=== PATIENT | female | born 1985 | race Caucasian/White ===

== ENCOUNTER 2018-03-13 12:24 | Emergency (ER) | payer SELFPAY ==
--- OUTSIDE RECORDS SUMMARY | 2018-03-13 12:26 | XMS REPORT ---
:1985 [facility] Address [address] [place] [address] Care Team Providers Name Role Phone CAYDEN HAYES Unavailable Unavailable ENDY TERRY Unavailable Unavailable Problems This patient has no known problems. Allergies, Adverse Reactions, Alerts This patient has no known allergies or adverse reactions. Medications This patient has no known medications. Results Test Description Test Time Test Comments Text Results Atomic Results Result Comments Comprehensive Metabolic Panel 2017-01-05 02:18:00 Test Item Value Reference Range Comments Sodium (test code=NA) 138 mmol/L 135-145 Potassium (test code=K) 3.0 mmol/L 3.5-5.1 Chloride (test code=CL) 95 mmol/L 98-105 Carbon Dioxide (test 32 mmol/L 22-29 code=CO2) Glucose (test code=GLU) 143 mg/dL 70-115 Blood Urea Nitrogen (test 19 mg/dL 6-20 code=BUN) Creatinine (test code=CREAT) 0.9 mg/dL 0.5-0.9 Calcium (test code=CA) 10.0 mg/dL 8.3-10.5 Prot Total (test code=TP) 7.3 g/dL 6.4-8.3 Albumin (test code=ALB) 4.6 g/dL 3.5-5.2 A/G Ratio (test 1.7 Ratio code=AGRATIO) Globulin (test code=GLOB) 2.7 2.9-3.1 Bili Total (test code=TBIL) 0.3 mg/dL 0.1-0.9 Alk Phos (test code=APHOS) 82 U/L 35-104 AST (test code=AST) 15 U/L 1-32 ALT (test code=ALT) 12 U/L 1-33 BUN/Creatinine Ratio (test 21.1 code=BCRATIO) Anion Gap (test code=AGAP) 11 mmol/L 7-16 Estimated GFR (test >60 mL/min/1.73m2 eGFR (estimated Glomerular code=GFR) Filtration Rate) is an estimated value,calculated from the patient's serum creatinine using the MDRD equation.It is NOT the patient's actual GFR. The eGFR provides a more clinicallyuseful measure of kidney disease than serum creatinine alone.This calculation takes sex and race into account, if the informationis provided. If the race is not provided, and the patient isAfrican-B[place]i, multiply by 1.212. If sex is not provided, and thepatient is female, multiply by 0.742. Results for patients <18 years ofage have not been validated by the MDRD study and should be interpretedwith caution.eGFR Result Interpretation:eGFR > or=60 is in the Normal RangeeGFR < 60 may mean kidney diseaseeGFR < 15 may mean kidney failureRanges recommended by the National Kidney Foundation,http://nkdep.nih.go v [id number] 00:39:00 Test Item Value Reference Range Comments Amphetamine (test code=AMPH) Negative Negative For diagnostic purposes only, positive results should always be assessedin conjunctionwith the patient's medical history,clinical examination and otherfindings.To fulfill legal requirements, a more specific alternate chemical methodmust be used inorder to obtain a Confirmed analytical result. GC/MS is the preferred confirmatory method. Barbiturates (test code=ROSAMARIA) POSITIVE Negative Benzodiazepine (test Negative Negative code=ANTONY) Cocaine (test code=COCA) Negative Negative Methadone (test code=MTHD) Negative Negative Opiates (test code=OPIA) Negative Negative PCP (test code=PCP) Negative Negative Propoxyphene (test Negative Negative code=PROPOX) THC (test code=THC) POSITIVE Negative Urinalysis [id number] 00:29:00 Test Item Value Reference Range Comments Color (test code=COLOR) Yellow Yellow,Straw,Pl yellow Clarity (test code=CLAR) Clear Clear Specific [place] (test code=SPGR) 1.026 1.001-1.035 pH (test code=PH) 9.0 5.0-9.0 Ketone (test code=KET) 5 mg/dL Negative Glucose (test code=GLUCUR) Negative mg/dL Negative Protein (test code=PROT) 75 mg/dL Negative Bilirubin (test code=BILI) Negative mg/dL Negative Occult Blood (test code=UDOB) Moderate Negative Urobilinogen (test code=UROB) 0.2 mg/dL 0.2-1.0 Nitrite (test code=NIT) Negative Negative Leuk Esterase (test code=LEUK) Negative Negative Micros Exam (test code=MEXAM) Indicated Epithelial Cells (test code=EPI) 20-29 /LPF 0-30 WBC, Urine (test code=UWBC) 0-1 /HPF 0-5 RBC, Urine (test code=URBC) None Seen /HPF 0-5 Bacteria (test code=BACT) Few /HPF CBC with [id number] 23:55:00 Test Item Value Reference Range Comments WBC (test code=WBC) 14.9 K/cumm 4.4-10.5 RBC (test code=RBC) 5.13 M/cumm 3.75-5.20 Hemoglobin (test code=HGB) 15.0 gm/dL 12.2-14.8 Hematocrit (test code=HCT) 45.5 % 36.5-44.4 MCV (test code=MCV) 88.8 fL 80-100 MCH (test code=MCH) 29.3 pg 27.0-32.5 MCHC (test code=MCHC) 33.0 g/dL 32.0-37.5 RDW (test code=RDW) 13.9 % 11.5-14.5 Platelet Count (test code=PLTCT) 304 K/cumm 140-440 MPV (test code=MPV) 9.0 fL Diff Method (test code=DIFFM) Auto Neutrophil (test code=NEUT) 83.6 % 36-70 Lymphocyte (test code=LYMPH) 10.5 % 12-44 Monocyte (test code=MONO) 5.3 % 0-11 Eosinophil (test code=EOS) 0.5 % 0-7 Basophil (test code=BASO) 0.1 % 0-2 Neutro Abs (test code=ANEUT) 12.5 K/cumm 1.6-7.4 Lymph Abs (test code=ALYMPH) 1.6 K/cumm 0.5-4.6 [place] Abs (test code=AMONO) 0.8 K/cumm 0.0-1.2 Eos Abs (test code=AEOS) 0.07 K/cumm 0.00-0.74 Baso Abs (test code=ABASO) 0.0 K/cumm 0.00-0.21 Comprehensive Metabolic [id number] 08:18:00 Test Item Value Reference Range Comments Sodium (test code=NA) 141 mmol/L 135-145 Potassium (test code=K) 3.7 mmol/L 3.5-5.1 Chloride (test code=CL) 99 mmol/L 98-105 Carbon Dioxide (test 29 mmol/L 22-29 code=CO2) Glucose (test code=GLU) 150 mg/dL 70-115 Blood Urea Nitrogen 18 mg/dL 6-20 (test code=BUN) Creatinine (test 0.9 mg/dL 0.5-0.9 code=CREAT) Calcium (test code=CA) 10.1 mg/dL 8.3-10.5 Prot Total (test 7.8 g/dL 6.4-8.3 code=TP) Albumin (test code=ALB) 4.7 g/dL 3.5-5.2 A/G Ratio (test 1.5 Ratio code=AGRATIO) Globulin (test 3.1 2.9-3.1 code=GLOB) Bili Total (test 0.2 mg/dL 0.1-0.9 code=TBIL) Alk Phos (test 89 U/L 35-104 code=APHOS) AST (test code=AST) 15 U/L 1-32 ALT (test code=ALT) 12 U/L 1-33 BUN/Creatinine Ratio 20.0 (test code=BCRATIO) Anion Gap (test 13 mmol/L 7-16 code=AGAP) Estimated GFR (test >60 mL/min/1.73m2 eGFR (estimated Glomerular code=GFR) Filtration Rate) is an estimated value,calculated from the patient's serum creatinine using the MDRD equation.It is NOT the patient's actual GFR. The eGFR provides a more clinicallyuseful measure of kidney disease than serum creatinine alone.This calculation takes sex and race into account, if the informationis provided. If the race is not provided, and the patient isAfrican-B[place], multiply by 1.212. If sex is not provided, and thepatient is female, multiply by 0.742. Results for patients <18 years ofage have not been validated by the MDRD study and should be interpretedwith caution.eGFR Result Interpretation:eGFR > or=60 is in the Normal RangeeGFR < 60 may mean kidney diseaseeGFR < 15 may mean kidney failureRanges recommended by the National Kidney Foundation,http://nkdep.nih .gov [id number] 08:18:00 Test Item Value Reference Range Comments Lipase (test code=LIP) 29 U/L 13-60 Urinalysis [id number] 07:51:00 Test Item Value Reference Range Comments Color (test code=COLOR) Yellow Yellow,Straw,Pl yellow Clarity (test code=CLAR) Clear Clear Specific [place] (test 1.024 1.001-1.035 code=SPGR) pH (test code=PH) 9.0 5.0-9.0 Ketone (test code=KET) Negative mg/dL Negative Glucose (test code=GLUCUR) Negative mg/dL Negative Protein (test code=PROT) 75 mg/dL Negative Bilirubin (test code=BILI) Negative mg/dL Negative Occult Blood (test code=UDOB) Moderate Negative Urobilinogen (test code=UROB) 0.2 mg/dL 0.2-1.0 Nitrite (test code=NIT) Negative Negative Leuk Esterase (test code=LEUK) Negative Negative Ictotest (test code=ICTOTEST) Confirmed Negative Negative,Confirmed Negative Micros Exam (test code=MEXAM) Indicated Epithelial Cells (test /LPF 0-30 code=EPI) WBC, Urine (test code=UWBC) 0-5 /HPF 0-5 RBC, Urine (test code=URBC) 0-3 /HPF 0-5 Bacteria (test code=BACT) Few /HPF BHCG, Serum, [id number] 07:20:00 Test Item Value Reference Range Comments Preg Qual [Se] (test code=BSHCG) Negative Negative CBC with [id number] 07:12:00 Test Item Value Reference Range Comments WBC (test code=WBC) 15.5 K/cumm 4.4-10.5 RBC (test code=RBC) 5.46 M/cumm 3.75-5.20 Hemoglobin (test code=HGB) 15.8 gm/dL 12.2-14.8 Hematocrit (test code=HCT) 49.9 % 36.5-44.4 MCV (test code=MCV) 91.4 fL 80-100 MCH (test code=MCH) 29.0 pg 27.0-32.5 MCHC (test code=MCHC) 31.7 g/dL 32.0-37.5 RDW (test code=RDW) 13.7 % 11.5-14.5 Platelet Count (test code=PLTCT) 317 K/cumm 140-440 MPV (test code=MPV) 8.9 fL Diff Method (test code=DIFFM) Auto Neutrophil (test code=NEUT) 86.1 % 36-70 Lymphocyte (test code=LYMPH) 10.0 % 12-44 Monocyte (test code=MONO) 3.2 % 0-11 Eosinophil (test code=EOS) 0.5 % 0-7 Basophil (test code=BASO) 0.1 % 0-2 Neutro Abs (test code=ANEUT) 13.4 K/cumm 1.6-7.4 Lymph Abs (test code=ALYMPH) 1.6 K/cumm 0.5-4.6 [place] Abs (test code=AMONO) 0.5 K/cumm 0.0-1.2 Eos Abs (test code=AEOS) 0.08 K/cumm 0.00-0.74 Baso Abs (test code=ABASO) 0.0 K/cumm 0.00-0.21
[2018-03-13] MEDS ORDERED: IBUPROFEN 400 MG TAB ONE (13:37)
--- NOTE | 2018-03-13 14:13 | RAD REPORT ---
EXAM DESCRIPTION: RAD - Wrist Right 3 View - 03/13/2018 1:41 pm CLINICAL HISTORY: Right wrist pain status post injury FINDINGS: No fracture or dislocation is seen. If the patient continues to have symptoms to suggest a n occult fracture then a followup plain film series in 7 days would be recommended.
--- NOTE | 2018-03-13 14:16 | ER ---
Nurse's Notes [facility] Name: Madison Moreland Age: 32 yrs Sex: Female : 1985 Arrival Date: 03/13/2018 Time: 12:26 Bed 25 Private MD: Diagnosis: Contusion of right wrist Presentation: 03/13 12:42 Presenting complaint: Patient states: Bumped her right wrist into microwave stand on aj Monday, reports pain and bruising since. Transition of care: patient was not received from another setting of care. Onset of symptoms was March 11, 2018. Risk Assessment: Do you want to hurt yourself or someone else? Patient reports no desire to harm self or others. Care prior to arrival: None. 12:42 Method Of Arrival: Ambulatory 12:42 Acuity: DULCE 4 aj 13:45 Initial Sepsis Screen: Does the patient meet any 2 criteria? No. Patient's initial aj1 sepsis screen is negative. Does the patient have a suspected source of infection? No. Patient's initial sepsis screen is negative. Triage Assessment: 12:44 General: Appears in no apparent distress. comfortable, Behavior is calm, cooperative, aj appropriate for age. Pain: Complains of pain in dorsal aspect of right forearm, right wrist and palmar aspect of right forearm. Neuro: Level of Consciousness is awake, alert, obeys commands, Oriented to person, place, time, situation, Appropriate for age. Respiratory: Airway is patent Respiratory effort is even, unlabored, Respiratory pattern is regular, symmetrical. Derm: Skin is intact, is healthy with good turgor, Skin is pink, warm \T\ dry. normal. Musculoskeletal: Circulation, motion, and sensation intact. Range of motion: intact in all extremities, Reports pain in dorsal aspect of right forearm, right wrist and palmar aspect of right forearm. Injury Description: Bruise sustained to palmar aspect of right forearm. 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 - Social history:: Smoking status: Patient/guardian denies using tobacco. - Ebola Screening: : Patient negative for fever greater than or equal to 101.5 degrees Fahrenheit, and additional compatible Ebola Virus Disease symptoms Patient denies exposure to infectious person Patient denies travel to an Ebola-affected area in the 21 days before illness onset No symptoms or risks identified at this time. Screenin:44 Abuse screen: Denies threats or abuse. Denies injuries from another. Nutritional aj1 screening: No deficits noted. Tuberculosis screening: No symptoms or risk factors identified. 15:04 Fall Risk None identified. aj1 Assessment: 13:43 General: Appears in no apparent distress. uncomfortable, Behavior is calm, cooperative, aj1 appropriate for age. Pain: Complains of pain in right arm and palmar aspect of right forearm and right wrist and dorsal aspect of right forearm Pain currently is 10 out of 10 on a pain scale. Neuro: Level of Consciousness is awake, alert, obeys commands, Oriented to person, place, time, situation, Speech is normal, Facial symmetry appears normal. Cardiovascular: Patient's skin is warm and dry. Respiratory: Airway is patent Respiratory effort is even, unlabored, Respiratory pattern is regular, symmetrical. GI: No signs and/or symptoms were reported involving the gastrointestinal system. : No signs and/or symptoms were reported regarding the genitourinary system. EENT: No signs and/or symptoms were reported regarding the EENT system. Derm: Skin is pink, warm \T\ dry. normal. Musculoskeletal: Capillary refill < 3 seconds, in right fingers. Range of motion: intact in all extremities. 14:45 Reassessment: Patient appears in no apparent distress at this time. No changes from aj1 previously documented assessment. Patient and/or family updated on plan of care and expected duration. Pain level reassessed. Patient is alert, oriented x 3, equal unlabored respirations, skin warm/dry/pink. Vital Signs: 12:44 BP 120 / 95; Pulse 96; Resp 16; Temp 98.6; Pulse Ox 98% on R/A; Weight 86.18 kg; Height aj 5 ft. 6 in. (167.64 cm); Pain 8/10; 13:43 BP 117 / 65; Pulse 64; Resp 18; Pulse Ox 97% ; aj1 12:44 Body Mass Index 30.67 (86.18 kg, 167.64 cm) aj ED Course: 12:26 Patient arrived in ED. aa5 12:44 Triage completed. aj 12:44 Arm band placed on left wrist. Patient placed in an exam room. aj 12:45 Lewis Flowers PA is PHCP. cp 12:45 Pavel Little MD is Attending Physician. cp 13:12 Yumiko Zhao, RN is Primary Nurse. aj1 13:41 XRAY Wrist RIGHT 3 view In Process Unspecified. EDMS 13:44 Patient has correct armband on for positive identification. Bed in low position. Call aj1 light in reach. Side rails up X 1. 13:44 No provider procedures requiring assistance completed. aj1 15:04 Patient did not have IV access during this emergency room visit. aj1 15:05 Velcro wrist splint applied to right wrist. aj1 Administered Medications: 13:39 Drug: Ibuprofen 800 mg Route: PO; aj1 Outcome: 14:16 Discharge ordered by MD. cp 15:04 Discharged to home ambulatory. aj1 15:04 Condition: good 15:04 Discharge instructions given to patient, Instructed on discharge instructions, follow up and referral plans. medication usage, Demonstrated understanding of instructions, follow-up care, medications. 15:06 Patient left the ED. aj1 Signatures: Dispatcher [employer] EDMT Yumiko Zhao, RN RN aj1 Puja Elias RN RN Mel Deng RN RN aa5 Lewis Flowers PA PA cp
--- NOTE | 2018-03-13 14:16 | EDPHYS ---
Physician Documentation [facility] Name: Madison Moreland Age: 32 yrs Sex: Female : 1985 Arrival Date: 03/13/2018 Time: 12:26 Bed 25 Private MD: ED Physician Pavel Little HPI: 03/13 13:00 This 32 yrs old Female presents to ER via Ambulatory with complaints of Wrist cp Injury. 13:00 The patient or guardian reports a contusion, pain, swelling, tenderness. The complaints cp affect the right wrist diffusely. Context: The problem was sustained at home, resulted from from accidently striking wrist against microwave 2 days ago. patient reports history of fracturing right wrist 4 years ago. 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 - Social history:: Smoking status: Patient/guardian denies using tobacco. - Ebola Screening: : Patient negative for fever greater than or equal to 101.5 degrees Fahrenheit, and additional compatible Ebola Virus Disease symptoms Patient denies exposure to infectious person Patient denies travel to an Ebola-affected area in the 21 days before illness onset No symptoms or risks identified at this time. ROS: 13:05 Constitutional: Negative for body aches, chills, fever, poor PO intake. cp 13:05 Eyes: Negative for injury, pain, redness, and discharge. cp 13:05 ENT: Negative for drainage from ear(s), ear pain, sore throat, difficulty swallowing, difficulty handling secretions. 13:05 Neck: Negative for pain with movement, pain at rest, stiffness. 13:05 Cardiovascular: Negative for chest pain, palpitations. 13:05 Respiratory: Negative for cough, shortness of breath, wheezing. 13:05 Abdomen/GI: Negative for abdominal pain, nausea, vomiting, and diarrhea. 13:05 MS/extremity: Positive for contusion, ecchymosis, pain, swelling, tenderness, of the right wrist, Negative for deformity, paresthesias. 13:05 Skin: Negative for cellulitis, rash. 13:05 All other systems are negative. Exam: 13:12 Head/Face: Normocephalic, atraumatic. cp 13:12 Constitutional: The patient appears in no acute distress, alert, awake, non-toxic, well developed, well nourished, uncomfortable. 13:12 Eyes: Periorbital structures: appear normal, Conjunctiva: normal, no exudate, no injection, Lids and lashes: appear normal, bilaterally. 13:12 ENT: External ear(s): are unremarkable, Nose: is normal, Mouth: is normal, Posterior pharynx: is normal, airway is patent. 13:12 Chest/axilla: Inspection: normal. 13:12 Cardiovascular: Rate: normal, Rhythm: regular, Pulses: Pulses are 2+ in right radial artery and left radial artery. 13:12 Respiratory: the patient does not display signs of respiratory distress, Respirations: normal, no use of accessory muscles, no retractions, no splinting, no tachypnea, labored breathing, is not present, Breath sounds: are clear throughout. 13:12 Abdomen/GI: Exam negative for discomfort, distension, guarding, Inspection: abdomen appears normal. 13:12 Musculoskeletal/extremity: Extremities: grossly normal except: noted in the right wrist: contusion, ecchymosis, swelling, tenderness, There is no evidence of deformity, Sensation intact. 13:12 Skin: cellulitis, is not appreciated, no rash present. Vital Signs: 12:44 BP 120 / 95; Pulse 96; Resp 16; Temp 98.6; Pulse Ox 98% on R/A; Weight 86.18 kg; Height aj 5 ft. 6 in. (167.64 cm); Pain 8/10; 13:43 BP 117 / 65; Pulse 64; Resp 18; Pulse Ox 97% ; aj1 12:44 Body Mass Index 30.67 (86.18 kg, 167.64 cm) Procedures: 14:15 Splinting: Splint applied to right wrist using wrist splint, applied by nurse. Examined cp by me, post splint application: neurovascular intact, Patient tolerated well. MDM: 12:45 Patient medically screened. cp 14:15 Data reviewed: vital signs, nurses notes, radiologic studies, plain films. Counseling: cp I had a detailed discussion with the patient and/or guardian regarding: the historical points, exam findings, and any diagnostic results supporting the discharge/admit diagnosis, radiology results, the need for outpatient follow up, a family practitioner, to return to the emergency department if symptoms worsen or persist or if there are any questions or concerns that arise at home. 03/13 13:00 Order name: XRAY Wrist RIGHT 3 view; Complete Time: 14:14 cp 03/13 14:14 Interpretation: Report reviewed. cp 03/13 13:50 Order name: Wrist Splint; Complete Time: 15:04 cp Administered Medications: 13:39 Drug: Ibuprofen 800 mg Route: PO; aj1 Disposition: 17:44 Co-signature as Attending Physician, Pavel Little MD. rn 03/14 07:18 Co-signature as Attending Physician, Pavel Little MD. rn Disposition: 03/13/18 14:16 Discharged to Home. Impression: Contusion of right wrist. - Condition is Stable. - Discharge Instructions: Contusion. - Prescriptions for Naprosyn 500 mg Oral Tablet - take 1 tablet by ORAL route 2 times per day take with food; 20 tablet. - Work release form, Medication Reconciliation Form, Thank You Letter, Antibiotic Education, Prescription Opioid Use form. - Follow up: Private Physician; When: 5 - 6 days; Reason: if pain continues. - Problem is new. - Symptoms have improved. Signatures: Dispatcher [employer] EDYumiko Mena RN RN aj1 Puja Elias RN RN aj Nieto, Roman, MD MD rn Page, Corey, PA PA cp Corrections: (The following items were deleted from the chart) 03/13 13:03 13:02 This 32 yrs old Female presents to ER via Ambulatory with complaints of cp Wrist Injury. cp 15:06 14:16 03/13/2018 14:16 Discharged to Home. Impression: Contusion of right wrist. aj1 Condition is Stable. Forms are Medication Reconciliation Form, Thank You Letter, Antibiotic Education, Prescription Opioid Use. Follow up: Private Physician; When: 5 - 6 days; Reason: if pain continues. Problem is new. Symptoms have improved. cp
== END 2018-03-13 15:06 | disposition home or self-care (01) ==
LOC: ER 12:24
DX: S60.211A Contusion of right wrist, initial encounter (principal); W22.8XXA Striking against or struck by other objects, initial encounter; Y93.89 Activity, other specified; Y92.009 Unspecified place in unspecified non-institutional (private) residence as the place of occurrence of the external cause
CPT/HCPCS: 99283

== ENCOUNTER 2018-05-18 21:42 | Emergency (ER) | payer SELFPAY ==
--- OUTSIDE RECORDS SUMMARY | 2018-05-18 21:45 | XMS REPORT ---
:1985 [facility] Address [address] [place] [address] Care Team Providers Name Role Phone CAYDEN HAYES Unavailable Unavailable ENDYTERRY Unavailable Unavailable Problems This patient has no [...] recommended by the National Kidney Foundation,http://nkdep.nih.go v [id number] 00:39:00 Test Item Value Reference Range Comments [...] code=PROPOX) THC (test code=THC) POSITIVE Negative Urinalysis [id number] 00:29:00 Test Item Value Reference Range Comments Color (test code=COLOR) Yellow Yellow,Straw,Pl yellow Clarity (test code=CLAR) Clear Clear Specific [place] (test code=SPGR) 1.026 1.001-1.035 pH (test code=PH) [...] Bacteria (test code=BACT) Few /HPF CBC with [id number] 23:55:00 Test Item Value Reference Range Comments [...] Lymph Abs (test code=ALYMPH) 1.6 K/cumm 0.5-4.6 [place] Abs (test code=AMONO) 0.8 K/cumm 0.0-1.2 Eos Abs (test code=AEOS) 0.07 K/cumm 0.00-0.74 Baso Abs (test code=ABASO) 0.0 K/cumm 0.00-0.21 Comprehensive Metabolic [id number] 08:18:00 Test Item Value Reference Range Comments [...] recommended by the National Kidney Foundation,http://nkdep.nih .gov [id number] 08:18:00 Test Item Value Reference Range Comments Lipase (test code=LIP) 29 U/L 13-60 Urinalysis [id number] 07:51:00 Test Item Value Reference Range Comments Color (test code=COLOR) Yellow Yellow,Straw,Pl yellow Clarity (test code=CLAR) Clear Clear Specific [place] (test 1.024 1.001-1.035 code=SPGR) pH (test code=PH) [...] Bacteria (test code=BACT) Few /HPF BHCG, Serum, [id number] 07:20:00 Test Item Value Reference Range Comments Preg Qual [Se] (test code=BSHCG) Negative Negative CBC with [id number] 07:12:00 Test Item Value Reference Range Comments [...] Lymph Abs (test code=ALYMPH) 1.6 K/cumm 0.5-4.6 [place] Abs (test code=AMONO) 0.5 K/cumm 0.0-1.2 Eos Abs (test code=AEOS) 0.08 K/cumm 0.00-0.74 Baso Abs (test code=ABASO) 0.0 K/cumm 0.00-0.21
[2018-05-18] MEDS ORDERED: ONDANSETRON 4 MG/2 ML VIAL ONE (22:34)
[2018-05-18] MEDS ORDERED: NA CHLORIDE 0.9% 1,000 ML ONE (22:34)
[2018-05-18] MEDS ORDERED: FAMOTIDINE 20 MG/2 ML VIAL IV ONE (22:34)
[2018-05-18 22:36] LABS: Absolute Lymphocytes (CBC) 2.7 K/uL (0.7-4.9); Absolute Monocytes 0.7 K/uL (0.1-1.3); Absolute Neutrophil 7.4 K/uL (1.8-8.0); Basophils % 0.3 % (0-1.3); Eosinophils % 0.4 % (0-4.4); Hematocrit 43.9 % (36.0-45.0); Lymphocytes % 24.7 % (15.3-44.8); MCH 30.5 pg (27.0-35.0); MCV 86.4 fL (80-100); MPV 9.8 fL (7.6-11.3); Monocytes % 6.6 % (3.3-12.3); RBC Red Blood Cell Count 5.08 M/uL (3.86-4.86)
[2018-05-18] MEDS ORDERED: DICYCLOMINE HCL 10 MG CAP ONE (22:51)
[2018-05-18 23:01] LABS: Albumin 4.1 g/dL (3.4-5.0); Bilirubin Direct 0.1 mg/dL (0-0.2); Bilirubin Total 0.5 mg/dL (0.2-1.0); Potassium 3.6 mmol/L (3.5-5.1)
[2018-05-18] MEDS ORDERED: LIDOCAINE VISCOUS 2% SOLN 15 ML UDC ONE (23:46)
[2018-05-18] MEDS ORDERED: MAGNE/ALUM HYDROXD 30 ML UCUP ONE (23:46)
[2018-05-18 23:48] LABS: Urine Blood NEGATIVE (NEG); Urine Glucose NEGATIVE (NEG); Urine Protein NEGATIVE (NEG); Urine Specific Gravity 1.015 (1.005-1.030); Urine pH 5.5 (5.0-7.0)
[2018-05-19 00:16] LABS: Urine Bacteria <20 /HPF (<20); Urine Culture Reflex Order NOT NEEDED; Urine RBC <5 /HPF (NONE SEEN)
--- NOTE | 2018-05-19 00:57 | EDPHYS ---
Physician Documentation [facility] Name: Madison Moreland Age: 32 yrs Sex: Female : 1985 Arrival Date: 05/18/2018 Time: 21:46 Bed 8 Private MD: ED Physician Pedro Schwarz HPI: 05/18 22:23 This 32 yrs old Female presents to ER via Ambulatory with complaints of cp Abdominal Pain. 22:23 The patient presents with abdominal pain in the upper abdomen. Onset: The cp symptoms/episode began/occurred 1 month(s) ago. The symptoms do not radiate. Associated signs and symptoms: Pertinent positives: anorexia, nausea, Pertinent negatives: blood in stools, constipation, diarrhea, fever, vomiting. Modifying factors: the symptoms are aggravated by food, pressure. 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 - Social history:: Smoking status: Patient uses tobacco products, smokes one pack cigarettes per day. - Ebola Screening: : Patient negative for fever greater than or equal to 101.5 degrees Fahrenheit, and additional compatible Ebola Virus Disease symptoms Patient denies exposure to infectious person Patient denies travel to an Ebola-affected area in the 21 days before illness onset No symptoms or risks identified at this time. ROS: 22:26 Eyes: Negative for injury, pain, redness, and discharge. cp 22:26 Constitutional: Positive for poor PO intake, Negative for body aches, chills, fever. 22:26 ENT: Negative for drainage from ear(s), ear pain, sore throat, difficulty swallowing, difficulty handling secretions. 22:26 Cardiovascular: Negative for chest pain, edema, palpitations. 22:26 Respiratory: Negative for cough, shortness of breath, wheezing. 22:26 Abdomen/GI: Positive for abdominal pain, nausea, anorexia, Negative for vomiting, diarrhea, constipation, black/tarry stool, rectal bleeding. 22:26 Back: Negative for pain at rest, pain with movement, radiated pain. 22:26 Skin: Negative for cellulitis, rash. 22:26 Neuro: Negative for altered mental status, headache, weakness. 22:26 All other systems are negative. Exam: 22:27 Head/Face: Normocephalic, atraumatic. cp 22:27 Constitutional: The patient appears in no acute distress, alert, awake, non-toxic, well developed, well nourished, uncomfortable. 22:27 Eyes: Periorbital structures: appear normal, Conjunctiva: normal, no exudate, no injection, Sclera: no appreciated abnormality, Lids and lashes: appear normal, bilaterally. 22:27 ENT: External ear(s): are unremarkable, Nose: is normal, Mouth: Lips: moist, Oral mucosa: moist, Posterior pharynx: is normal, airway is patent, no erythema, no exudate. 22:27 Chest/axilla: Inspection: normal, Palpation: is normal, no crepitus, no tenderness. 22:27 Cardiovascular: Rate: normal, Rhythm: regular. 22:27 Respiratory: the patient does not display signs of respiratory distress, Respirations: normal, no use of accessory muscles, no retractions, no splinting, no tachypnea, labored breathing, is not present, Breath sounds: are clear throughout, no decreased breath sounds, no stridor, no wheezing. 22:27 Abdomen/GI: Inspection: abdomen appears normal, Bowel sounds: active, all quadrants, Palpation: soft, in all quadrants, moderate abdominal tenderness, in the epigastric area, right upper quadrant and left upper quadrant, rebound tenderness, is not appreciated, voluntary guarding, is elicited in the epigastric area, right upper quadrant and left upper quadrant. 22:27 Skin: cellulitis, is not appreciated, no rash present. Vital Signs: 22:04 BP 138 / 100; Pulse 84; Resp 20; Temp 98.8; Pulse Ox 97% ; Weight 83.91 kg; Height 5 bp ft. 6 in. (167.64 cm); 22:30 BP 127 / 94; Pulse 67; Resp 16; Pulse Ox 100% ; bp 23:47 BP 126 / 84; Pulse 74; Resp 16; Pulse Ox 97% ; bp 08 01:00 BP 106 / 64; Pulse 68; Resp 16; Pulse Ox 98% ; bp 08 22:04 Body Mass Index 29.86 (83.91 kg, 167.64 cm) bp MDM: 05/18 22:00 Patient medically screened. cp 23:00 Differential diagnosis: appendicitis, cholecystitis, Cholelithiasis, diverticulitis, cp gastritis, pancreatitis, Pelvic Inflammatory Disease, Pyelonephritis, Ureterolithiasis, urinary tract infection. 05/19 00:55 Data reviewed: vital signs, nurses notes, lab test result(s), radiologic studies, CT cp scan. 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 Special discussion: Based on the patient's Hx, exam, and Dx evaluation, there is no indication for emergent surgery or inpatient Tx. It is understood by the patient/guardian that if the Sx's persist or worsen they need to return immediately for re-evaluation. 05/18 22:23 Order name: Amylase, Serum; Complete Time: 23:37 cp 05/18 22:23 Order name: Basic Metabolic Panel; Complete Time: 23:37 cp 05/19 00:03 Interpretation: Normal except: CL 108; GFR 83. cp 05/18 22:23 Order name: CBC with Diff; Complete Time: 23:37 cp 05/19 00:03 Interpretation: Normal except: RBC 5.08; HGB 15.5. cp 05/18 22:23 Order name: Creatinine for Radiology; Complete Time: 23:37 cp 05/18 22:23 Order name: Hepatic Function; Complete Time: 23:37 cp 05/18 22:23 Order name: Lipase; Complete Time: 23:37 cp 05/19 00:03 Interpretation: Within normal limits: LIP 158. cp 05/18 22:23 Order name: Urine Microscopic Only; Complete Time: 01:24 cp 05/18 22:23 Order name: CT Abd/Pelvis - W/Contrast: no oral contrast cp 05/18 23:05 Order name: Urine Dipstick--Ancillary (enter results) ms 05/18 23:05 Order name: Urine --Ancillary (enter results) ms 05/18 22:23 Order name: Urine Test (obtain specimen); Complete Time: 22:59 cp 05/18 22:23 Order name: IV Saline Lock; Complete Time: 22:25 cp 05/18 22:23 Order name: Labs collected and sent; Complete Time: 22:25 cp 05/18 22:23 Order name: Urine Dipstick-Ancillary (obtain specimen); Complete Time: 22:59 cp Administered Medications: 05/18 22:30 Drug: NS 0.9% 1000 ml Route: IV; Rate: 1 bolus; Site: right forearm; bp 22:30 Drug: Zofran 4 mg Route: IVP; Site: right forearm; bp 22:58 Follow up: Response: Nausea is decreased bp 22:30 Drug: Pepcid 20 mg Route: IVP; Site: right forearm; bp 22:59 Follow up: Response: No adverse reaction bp 22:45 Drug: Bentyl 20 mg Route: PO; bp 23:39 Follow up: Response: Pain is decreased bp 23:45 Drug: GI Cocktail without - (Maalox Suspension 30 ml, Lidocaine Liquid 2 % 15 bp ml) Route: PO; 23:46 Follow up: Response: Pain is decreased bp Disposition: 05/19 01:23 Co-signature as Attending Physician, Pedro Schwarz MD. pkl Disposition: 05/19/18 00:57 Discharged to Home. Impression: Upper abdominal pain, unspecified. - Condition is Stable. - Discharge Instructions: Abdominal Pain, Adult, Gastritis, Adult. - Prescriptions for Protonix 40 mg Oral Tablet - take 1 tablet by ORAL route once daily; 30 tablet. Zofran 4 mg Oral Tablet - take 1 tablet by ORAL route every 12 hours As needed; 20 tablet. Carafate 1 gram Oral Tablet - take 1 tablet by ORAL route 4 times per day take on an empty stomach, beginning on waking and last dose at bedtime. dissolve in small amount of warm water prior to ingestion; 100 tablet. - Medication Reconciliation Form, Thank You Letter, Antibiotic Education, Prescription Opioid Use, Work release form form. - Follow up: Lala Downs MD; When: 2 - 3 days; Reason: Recheck today's complaints. - Problem is new. - Symptoms have improved. Signatures: Dispatcher [employer] EDPedro Atwood MD MD pkl Lewis Flowers PA PA Stewart Hudson, RN RN bp Corrections: (The following items were deleted from the chart) 01:12 00:57 05/19/2018 00:57 Discharged to Home. Impression: Upper abdominal pain, bp unspecified. Condition is Stable. Forms are Medication Reconciliation Form, Thank You Letter, Antibiotic Education, Prescription Opioid Use. Follow up: Lala Downs; When: 2 - 3 days; Reason: Recheck today's complaints. Problem is new. Symptoms have improved. cp
--- NOTE | 2018-05-19 00:57 | ER ---
Nurse's Notes [facility] Name: Madison Moreland Age: 32 yrs Sex: Female : 1985 Arrival Date: 05/18/2018 Time: 21:46 Bed 8 Private MD: Diagnosis: Upper abdominal pain, unspecified Presentation: 05/18 22:03 Presenting complaint: Patient states: I'VE HAD THESE STOMACH CRAMPS FOR A MONTH. bp Transition of care: patient was not received from another setting of care. Onset of symptoms is unknown. Risk Assessment: Do you want to hurt yourself or someone else? Patient reports no desire to harm self or others. Initial Sepsis Screen: Does the patient meet any 2 criteria? No. Patient's initial sepsis screen is negative. Does the patient have a suspected source of infection? No. Patient's initial sepsis screen is negative. Care prior to arrival: None. 22:03 Method Of Arrival: Ambulatory bp 22:03 Acuity: DULCE 3 bp Triage Assessment: 22:04 General: Appears distressed, uncomfortable, Behavior is cooperative, appropriate for bp age, anxious. Pain: Complains of pain in abdomen. EENT: No deficits noted. Neuro: Level of Consciousness is awake, alert, obeys commands, Oriented to person, place, time, situation, Appropriate for age. Cardiovascular: No deficits noted. Respiratory: Airway is patent Respiratory effort is even, unlabored, Respiratory pattern is regular, symmetrical. GI: Abdomen is non-distended. : No deficits noted. Derm: No deficits noted. Musculoskeletal: Circulation, motion, and sensation intact. Range of motion: intact in all extremities. 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 - Social history:: Smoking status: Patient uses tobacco products, smokes one pack cigarettes per day. - Ebola Screening: : Patient negative for fever greater than or equal to 101.5 degrees Fahrenheit, and additional compatible Ebola Virus Disease symptoms Patient denies exposure to infectious person Patient denies travel to an Ebola-affected area in the 21 days before illness onset No symptoms or risks identified at this time. Screenin:16 Abuse screen: Denies threats or abuse. Denies injuries from another. Nutritional bp screening: No deficits noted. Tuberculosis screening: No symptoms or risk factors identified. Fall Risk None identified. Assessment: 22:15 Reassessment: SEE TRIAGE NOTE. bp 23:00 GI: Bowel sounds present X 4 quads. Abd is soft X 4 quads. bp 23:45 Reassessment: PT RETURNED FROM CT. ALL CURRENT STUDIES COMPLETED. LAB/RAD RESULTS bp PENDING. VS AND CURRENT RESULTS UNREMARKABLE. 05/19 01:10 Reassessment: PT D/C HOME AMBULATORY WITH FAMILY, DX WITH ABDOMINAL PAIN. bp Vital Signs: 05/18 22:04 BP 138 / 100; Pulse 84; Resp 20; Temp 98.8; Pulse Ox 97% ; Weight 83.91 kg; Height 5 bp ft. 6 in. (167.64 cm); 22:30 BP 127 / 94; Pulse 67; Resp 16; Pulse Ox 100% ; bp 23:47 BP 126 / 84; Pulse 74; Resp 16; Pulse Ox 97% ; bp 05/19 01:00 BP 106 / 64; Pulse 68; Resp 16; Pulse Ox 98% ; bp 05/18 22:04 Body Mass Index 29.86 (83.91 kg, 167.64 cm) bp ED Course: 05/18 21:46 Patient arrived in ED. al2 21:57 Stewart Russo, KINGS is Primary Nurse. bp 21:59 Lewis Flowers PA is PHCP. cp 21:59 Pedro Schwarz MD is Attending Physician. cp 22:04 Triage completed. bp 22:15 Arm band placed on. bp 22:16 Patient has correct armband on for positive identification. Bed in low position. Call bp light in reach. Side rails up X2. 22:16 Inserted saline lock: 20 gauge in right forearm, using aseptic technique. Blood bp collected. 22:26 Radiology exam delayed due to lab results not completed at this time. (BUN/Creatinine) kw1 test not completed at this time. 22:51 Radiology exam delayed due to lab results not completed at this time. (BUN/Creatinine). kw1 23:[address] via wheelchair. kw1 23:33 CT Abd/Pelvis - W/Contrast: no oral contrast In Process Unspecified. EDMS 23:35 CT completed. Patient tolerated procedure well. Patient moved back from CT. kw1 05/19 00:56 Lala Downs MD is Referral Physician. cp 01:10 No provider procedures requiring assistance completed. IV discontinued, intact, bp bleeding controlled, No redness/swelling at site. Pressure dressing applied. Administered Medications: 05/18 22:30 Drug: NS 0.9% 1000 ml Route: IV; Rate: 1 bolus; Site: right forearm; bp 22:30 Drug: Zofran 4 mg Route: IVP; Site: right forearm; bp 22:58 Follow up: Response: Nausea is decreased bp 22:30 Drug: Pepcid 20 mg Route: IVP; Site: right forearm; bp 22:59 Follow up: Response: No adverse reaction bp 22:45 Drug: Bentyl 20 mg Route: PO; bp 23:39 Follow up: Response: Pain is decreased bp 23:45 Drug: GI Cocktail without - (Maalox Suspension 30 ml, Lidocaine Liquid 2 % 15 bp ml) Route: PO; 23:46 Follow up: Response: Pain is decreased bp Outcome: 05/19 00:57 Discharge ordered by MD. cp 01:11 Discharged to home ambulatory, with family. bp 01:11 Condition: stable 01:11 Discharge instructions given to patient, Instructed on discharge instructions, follow up and referral plans. medication usage, Demonstrated understanding of instructions, follow-up care, medications, Prescriptions given X 3. 01:12 Patient left the ED. bp Signatures: Dispatcher [employer] EDMS Lewis Flowers PA PA cp Peltier, Brian, RN RN bp Shena Jules kw1 Nelida Rhodes2
--- NOTE | 2018-05-19 12:23 | RAD REPORT ---
EXAM DESCRIPTION: CTAbdomen Pelvis W Contrast - 05/19/2018 3:40 am CLINICAL HISTORY: Abdominal pain. upper abdominal pain COMPARISON: No comparisons TECHNIQUE: Biphasic CT imaging of the abdomen and pelvis was performed with 100 ml non-ionic IV cont rast. All CT scans are performed using dose optimization technique as appropriate and may include automated exposure control or mA/KV adjustment according to patient size. FINDINGS: The lung bases are clear. The liver, spleen, pancreas, adrenal glands and kidneys are within normal limits. No bowel obstruction, free air, free fluid or abscess. The appendix is normal. No evidence of signi ficant lymphadenopathy. No suspicious bony findings. Evidence of recent right ovarian cyst rupture or ovulation with trace pe lvic free fluid. IMPRESSION: No acute intra-abdominal or pelvic finding.
== END 2018-05-19 01:12 | disposition home or self-care (01) ==
LOC: ER 21:42
DX: R10.10 Upper abdominal pain, unspecified (principal); G40.909 Epilepsy, unspecified, not intractable, without status epilepticus; F17.210 Nicotine dependence, cigarettes, uncomplicated
CPT/HCPCS: 36415; 74177; 80048; 80076; 81003; 81015; 81025; 82150; 83690; 85025; 96374; 96375; 99284; J2405; J7030; Q9967

== ENCOUNTER 2018-05-20 17:40 | Emergency (ER) | payer SELFPAY ==
--- OUTSIDE RECORDS SUMMARY | 2018-05-20 17:42 | XMS REPORT ---
:1985 [facility] [address] [place] [address] Care Team Providers Name Role Phone CAYDEN [...] race is not provided, and the patient isAfrican-[place]i, multiply by 1.212. If sex is not provided, and thepatient is female, multiply by 0.742. Results for patients <18 years ofage have not been validated by the MDRD study and should be interpretedwith caution.eGFR Result Interpretation:eGFR > or=60 is in the Normal RangeeGFR < 60 may mean kidney diseaseeGFR < 15 may mean kidney failureRanges recommended by the National Kidney Foundation,http://nkdep.nih.go v [id number] 00:39:00 Test Item Value Reference Range Comments [...] code=PROPOX) THC (test code=THC) POSITIVE Negative Urinalysis [id number] 00:29:00 Test Item Value Reference Range Comments Color (test code=COLOR) Yellow Yellow,Straw,Pl yellow Clarity (test code=CLAR) Clear Clear Specific [place] (test code=SPGR) 1.026 1.001-1.035 pH (test code=PH) [...] Bacteria (test code=BACT) Few /HPF CBC with [id number] 23:55:00 Test Item Value Reference Range Comments [...] Lymph Abs (test code=ALYMPH) 1.6 K/cumm 0.5-4.6 [place]henry Abs (test code=AMONO) 0.8 K/cumm 0.0-1.2 Eos Abs (test code=AEOS) 0.07 K/cumm 0.00-0.74 Baso Abs (test code=ABASO) 0.0 K/cumm 0.00-0.21 Comprehensive Metabolic [id number] 08:18:00 Test Item Value Reference Range Comments [...] race is not provided, and the patient isAfrican-Ku[place]i, multiply by 1.212. If sex is not provided, and thepatient is female, multiply by 0.742. Results for patients <18 years ofage have not been validated by the MDRD study and should be interpretedwith caution.eGFR Result Interpretation:eGFR > or=60 is in the Normal RangeeGFR < 60 may mean kidney diseaseeGFR < 15 may mean kidney failureRanges recommended by the National Kidney Foundation,http://nkdep.nih .gov [id number] 08:18:00 Test Item Value Reference Range Comments Lipase (test code=LIP) 29 U/L 13-60 Urinalysis [id number] 07:51:00 Test Item Value Reference Range Comments Color (test code=COLOR) Yellow Yellow,Straw,Pl yellow Clarity (test code=CLAR) Clear Clear Specific [place] (test 1.024 1.001-1.035 code=SPGR) pH (test code=PH) [...] Bacteria (test code=BACT) Few /HPF BHCG, Serum, [id number] 07:20:00 Test Item Value Reference Range Comments Preg Qual [Se] (test code=BSHCG) Negative Negative CBC with [id number] 07:12:00 Test Item Value Reference Range Comments [...] Lymph Abs (test code=ALYMPH) 1.6 K/cumm 0.5-4.6 [place] Abs (test code=AMONO) 0.5 K/cumm 0.0-1.2 Eos Abs (test code=AEOS) 0.08 K/cumm 0.00-0.74 Baso Abs (test code=ABASO) 0.0 K/cumm 0.00-0.21
[2018-05-20] MEDS ORDERED: MAGNE/ALUM HYDROXD 30 ML UCUP ONE (18:10)
[2018-05-20] MEDS ORDERED: LIDOCAINE VISCOUS 2% SOLN 15 ML UDC ONE (18:11)
[2018-05-20] MEDS ORDERED: ONDANSETRON 4 MG/2 ML VIAL ONE (18:11)
[2018-05-20] MEDS ORDERED: MORPHINE 4 MG/ML SYR ONE (18:11)
[2018-05-20] MEDS ORDERED: NA CHLORIDE 0.9% 1,000 ML ONE (18:11)
[2018-05-20 18:23] LABS: Absolute Lymphocytes (CBC) 2.3 K/uL (0.7-4.9); Absolute Monocytes 0.7 K/uL (0.1-1.3); Absolute Neutrophil 7.8 K/uL (1.8-8.0); Basophils % 0.6 % (0-1.3); Eosinophils % 0.4 % (0-4.4); Hematocrit 45.1 % (36.0-45.0); MCH 29.8 pg (27.0-35.0); MPV 9.4 fL (7.6-11.3); Monocytes % 6.8 % (3.3-12.3); RBC Red Blood Cell Count 5.19 M/uL (3.86-4.86)
[2018-05-20 18:44] LABS: Albumin 4.3 g/dL (3.4-5.0); Bilirubin Direct 0.1 mg/dL (0-0.2); Bilirubin Total 0.5 mg/dL (0.2-1.0); Potassium 3.8 mmol/L (3.5-5.1); Protein, Total 8.3 g/dL (6.4-8.2)
--- NOTE | 2018-05-20 19:11 | RAD REPORT ---
EXAM DESCRIPTION: US - Abdomen Exam Limited - 05/20/2018 6:58 pm CLINICAL HISTORY: Abdominal pain COMPARISON: CT study May 18 FINDINGS: A single mobile 9 millimeter gallstone is identified. There is no wall thickening or peric holecystic fluid. No common duct stone or biliary tree dilatation identified. Common bile duct is 6 mm. IMPRESSION: Single mobile gallstone. No other gallbladder or biliary tree finding.
[2018-05-20] MEDS ORDERED: HALOPERIDOL LACT 5 MG/ML INJ ONE (20:04)
[2018-05-20] MEDS ORDERED: DIPHENHYDRAMINE 50 MG/ML VIAL ONE (20:04)
--- NOTE | 2018-05-20 20:46 | EDPHYS ---
Physician Documentation [facility] Name: Madison Moreland Age: 32 yrs Sex: Female : 1985 Arrival Date: 05/20/2018 Time: 17:42 Bed 14 Private MD: None, None ED Physician Kyle Albarran HPI: 05/20 18:17 This 32 yrs old Female presents to ER via Wheelchair with complaints of rn Abdominal Pain. 18:17 The patient presents with abdominal pain in the epigastric area, in the right upper rn quadrant. Onset: The symptoms/episode began/occurred. 18:19 Onset: The symptoms/episode began/occurred 3 day(s) ago. The symptoms radiate to The rn symptoms are described as sharp. Modifying factors: The symptoms are alleviated by nothing, the symptoms are aggravated by nothing. Severity of pain: At its worst the pain was moderate in the emergency department the pain is unchanged. The patient has experienced similar episodes in the past. Reports upper abd pain, radiates to back, + nausea and vomiting, seen recently and told normal ct abdomen, not taking antacid medication, no fever, can't tolerate PO, pain approx 30 min after eating.. 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 - Social history:: Smoking status: Patient uses tobacco products, smokes one pack cigarettes per day. - Ebola Screening: : Patient denies travel to an Ebola-affected area in the 21 days before illness onset. - Family history:: not pertinent. - Hospitalizations: : No recent hospitalization is reported. ROS: 18:19 Constitutional: Negative for fever, chills, and weight loss, Eyes: Negative for injury, rn pain, redness, and discharge, Neck: Negative for injury, pain, and swelling, Cardiovascular: Negative for chest pain, palpitations, and edema, Respiratory: Negative for shortness of breath, cough, wheezing, and pleuritic chest pain, Abdomen/GI: Negative for diarrhea, and constipation, MS/Extremity: Negative for injury and deformity, Skin: Negative for injury, rash, and discoloration, Neuro: Negative for headache, weakness, numbness, tingling, and seizure. Exam: 18:19 Constitutional: This is a well developed, well nourished patient who is awake, alert, rn uncomfortable, crying Head/Face: Normocephalic, atraumatic. Eyes: Pupils equal round and reactive to light, extra-ocular motions intact. Lids and lashes normal. Conjunctiva and sclera are non-icteric and not injected. Cornea within normal limits. Periorbital areas with no swelling, redness, or edema. Cardiovascular: tachycardic, regular, no murmur Respiratory: + hyperventilating and crying, clear bilateral breath sounds Abdomen/GI: soft, + epigastric and RUQ tenderness, no rebound, + upper abd guarding MS/ Extremity: Pulses equal, no cyanosis. Neurovascular intact. Full, normal range of motion. Equal circumference. Neuro: Awake and alert, GCS 15, oriented to person, place, time, and situation. Cranial nerves II-XII grossly intact. Motor strength 5/5 in all extremities. Sensory grossly intact. Vital Signs: 18:02 BP 158 / 101; Pulse 110; Resp 24; Pulse Ox 98% on R/A; Pain 10/10; aj1 18:27 BP 135 / 98; Pulse 93; Resp 20; Pulse Ox 95% on R/A; rb1 19:15 BP 112 / 60; Pulse 67; Resp 18; Pulse Ox 100% on R/A; Pain 8/10; lp1 20:00 BP 108 / 94; Pulse 53; Resp 16; Pulse Ox 98% on R/A; lp1 20:58 BP 112 / 55; Pulse 58; Resp 16; Temp 98.2; Pulse Ox 99% on R/A; Pain 1/10; lp1 MDM: 17:56 Patient medically screened. rn 20:42 Differential diagnosis: cholecystitis, Cholelithiasis, non-specific abd pain, chronic gs abdominal pain. Data reviewed: vital signs, nurses notes. Response to treatment: the patient's symptoms have resolved after treatment, and as a result, I will discharge patient. ED course: pt seen and examined mild diffuse ab tenderness no rebound, chroniuc ab pain for over one month ct labs on previous visit, us today, pain resolved with haldol. 20:42 Response to treatment: no emesis . 05/20 18:02 Order name: Basic Metabolic Panel; Complete Time: 18:48 rn 08 18:02 Order name: CBC with Diff; Complete Time: 18:48 rn 05/20 18:02 Order name: Creatinine for Radiology; Complete Time: 18:48 rn 05/20 18:02 Order name: Hepatic Function; Complete Time: 18:48 rn 08 18:02 Order name: Lipase; Complete Time: 18:48 rn 05/20 18:02 Order name: US Abdomen Limited; Complete Time: 19:12 rn 08 18:02 Order name: IV Saline Lock; Complete Time: 18:21 rn 08 18:02 Order name: Labs collected and sent; Complete Time: 18:21 rn Administered Medications: 18:05 Drug: morphine 4 mg Route: IVP; Site: left antecubital; rb1 18:22 Follow up: Response: No adverse reaction; Pain is decreased rb1 18:05 Drug: Zofran 4 mg Route: IVP; Site: left antecubital; rb1 18:22 Follow up: Response: No adverse reaction; Nausea is decreased rb1 18:05 Drug: GI Cocktail without - (Maalox Suspension 30 ml, Lidocaine Liquid 2 % 15 rb1 ml) Route: PO; 18:30 Follow up: Response: No adverse reaction; Pain is decreased rb1 18:05 Drug: NS 0.9% 1000 ml Route: IV; Rate: 1000 ml; Site: left antecubital; rb1 20:13 Follow up: IV Status: Completed infusion; IV Intake: 1000ml lp1 19:34 CANCELLED (Patient Eloped): fentaNYL (PF) 50 mcg IVP once gs 20:10 Drug: HALdol 2.5 mg Route: IVP; Site: left antecubital; lp1 20:58 Follow up: Response: Marked relief of symptoms lp1 20:10 Drug: Benadryl 25 mg Route: IVP; Site: left antecubital; lp1 20:58 Follow up: Response: Marked relief of symptoms lp1 Disposition: 05/20/18 20:46 Discharged to Home. Impression: Generalized abdominal pain, Chronic pain syndrome. - Condition is Stable. - Discharge Instructions: Abdominal Pain, Adult, Chronic Pain. - Prescriptions for Reglan 5 mg Oral tablet - take 1 tablet by ORAL route 4 times per day As needed; 20 tablet. Pepcid 20 mg Oral Tablet - take 1 tablet by ORAL route every 12 hours for 10 days; 20 tablet. - Work release form, Family Work Release, Medication Reconciliation Form, Thank You Letter, Antibiotic Education, Prescription Opioid Use form. - Follow up: Lala Downs MD; When: 2 - 3 days; Reason: Re-evaluation by your physician. Signatures: Dispatcher [employer] EDHI Yumiko Zhao RN RN aj1 Pavel Little MD MD rn Malathi Hong RN RN lp1 Carina Dowell RN RN rb1 Kyle Albarran MD MD Corrections: (The following items were deleted from the chart) 19:05 18:18 Abdomen Pelvis W Con+CT.RAD.BRZ ordered. [facility] 19:34 19:34 fentaNYL (PF) 50 mcg IVP once ordered. [facility] 21:00 20:46 05/20/2018 20:46 Discharged to Home. Impression: Generalized abdominal pain; lp1 Chronic pain syndrome. Condition is Stable. Forms are Medication Reconciliation Form, Thank You Letter, Antibiotic Education, Prescription Opioid Use. Follow up: Lala Downs; When: 2 - 3 days; Reason: Re-evaluation by your physician.
--- NOTE | 2018-05-20 20:46 | ER ---
Nurse's Notes [facility] Name: Madison Moreland Age: 32 yrs Sex: Female : 1985 Arrival Date: 05/20/2018 Time: 17:42 Bed 14 Private MD: None, None Diagnosis: Generalized abdominal pain;Chronic pain syndrome Presentation: 05/20 17:58 Presenting complaint: Patient states: She has been having abdominal pain for the past aj1 month, but it has gotten much worse over the past few days. Patient is diaphoretic, restless, crying. Reports pain to the epigastric area and LUQ, nausea, and vomiting. Denies diarrhea, denies fever. Reports pain is exacerbated by eating. Reports that she was seen here in this emergency room recently and was told that she might have a stomach ulcer. She was unable to follow up with a physician. Transition of care: patient was not received from another setting of care. Onset of symptoms was April 2018. Risk Assessment: Do you want to hurt yourself or someone else? Patient reports no desire to harm self or others. Initial Sepsis Screen: Does the patient meet any 2 criteria? HR > 90 bpm. Does the patient have a suspected source of infection? Yes: Acute abdominal pain. Care prior to arrival: None. 17:58 Method Of Arrival: Wheelchair aj1 17:58 Acuity: DULCE 3 aj1 Triage Assessment: 18:02 General: Appears distressed, uncomfortable, Behavior is cooperative, anxious, crying, aj1 restless. Pain: Complains of pain in epigastric area and left upper quadrant Pain does not radiate. Pain currently is 10 out of 10 on a pain scale. Quality of pain is described as sharp, Pain began one month ago Is intermittent, Alleviated by nothing. Aggravated by eating, drinking. Neuro: Level of Consciousness is awake, alert, obeys commands. Cardiovascular:. Respiratory: Airway is patent Respiratory effort is even, unlabored, Respiratory pattern is regular, symmetrical. GI: Reports upper abdominal pain, intolerance of fluids, intolerance of food, nausea, vomiting. Derm: Skin is diaphoretic. 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 - Social history:: Smoking status: Patient uses tobacco products, smokes one pack cigarettes per day. - Ebola Screening: : Patient denies travel to an Ebola-affected area in the 21 days before illness onset. - Family history:: not pertinent. - Hospitalizations: : No recent hospitalization is reported. Screenin:46 Abuse screen: Denies threats or abuse. Nutritional screening: No deficits noted. rb1 Tuberculosis screening: No symptoms or risk factors identified. Fall Risk None identified. Assessment: 17:46 General: Appears distressed, Behavior is crying, Denies fever. Pain: Complains of pain rb1 in epigastric area Pain radiates to left upper quadrant and left mid back Pain currently is 10 out of 10 on a pain scale. Pain began Off and on for the past month but has gotten worse the last two days. Neuro: Level of Consciousness is awake, alert, obeys commands, Oriented to person, place, time, situation. Cardiovascular: Capillary refill < 3 seconds is brisk in bilateral fingers. Respiratory: Airway is patent Respiratory effort is even, unlabored, Respiratory pattern is regular, symmetrical. GI: Bowel sounds present X 4 quads. Abd is soft Abdomen is tender to palpation in epigastric area Reports nausea, vomiting. GI: Pt. stated, "I can't eat or drink anything because it hurts too bad.". : No signs and/or symptoms were reported regarding the genitourinary system. Derm: Skin is pink, warm \\T\\ dry. 18:41 Reassessment: Patient and/or family updated on plan of care and expected duration. Pain rb1 level reassessed. Patient is alert, oriented x 3, equal unlabored respirations, skin warm/dry/pink. US at bedside. 19:15 Reassessment: Patient states LUQ abdominal pain comes and goes right now, pain lp1 medication did not help. 20:10 General: Behavior is crying. Pain: Pain currently is 10 out of 10 on a pain scale. lp1 Quality of pain is described as sharp, stabbing, Is continuous. 20:58 Reassessment: Patient denies pain at this time. Patient states feeling better. Patient lp1 states symptoms have improved. Vital Signs: 18:02 BP 158 / 101; Pulse 110; Resp 24; Pulse Ox 98% on R/A; Pain 10/10; aj1 18:27 BP 135 / 98; Pulse 93; Resp 20; Pulse Ox 95% on R/A; rb1 19:15 BP 112 / 60; Pulse 67; Resp 18; Pulse Ox 100% on R/A; Pain 8/10; lp1 20:00 BP 108 / 94; Pulse 53; Resp 16; Pulse Ox 98% on R/A; lp1 20:58 BP 112 / 55; Pulse 58; Resp 16; Temp 98.2; Pulse Ox 99% on R/A; Pain 1/10; lp1 ED Course: 17:42 Patient arrived in ED. sb2 17:42 None, None is Private Physician. sb2 17:46 Carina Dowell, [facility] is Primary Nurse. rb1 17:46 Patient has correct armband on for positive identification. Bed in low position. Call rb1 light in reach. Side rails up X2. Pulse ox on. NIBP on. 17:56 Pavel Little MD is Attending Physician. rn 18:02 Triage completed. aj1 18:02 Arm band placed on Patient placed in an exam room. aj1 18:57 Ultrasound completed. Patient tolerated well. sg3 18:58 US Abdomen Limited In Process Unspecified. EDMS 19:00 Report given to [facility] Servin. rb1 19:57 Attending Physician role handed off by Pavel Little MD gs 19:57 Kyle Albarran MD is Attending Physician. gs 20:11 No provider procedures requiring assistance completed. lp1 20:45 Lala Downs MD is Referral Physician. gs 20:58 IV discontinued, No redness/swelling at site. Pressure dressing applied. lp1 Administered Medications: 18:05 Drug: morphine 4 mg Route: IVP; Site: left antecubital; rb1 18:22 Follow up: Response: No adverse reaction; Pain is decreased rb1 18:05 Drug: Zofran 4 mg Route: IVP; Site: left antecubital; rb1 18:22 Follow up: Response: No adverse reaction; Nausea is decreased rb1 18:05 Drug: GI Cocktail without - (Maalox Suspension 30 ml, Lidocaine Liquid 2 % 15 rb1 ml) Route: PO; 18:30 Follow up: Response: No adverse reaction; Pain is decreased rb1 18:05 Drug: NS 0.9% 1000 ml Route: IV; Rate: 1000 ml; Site: left antecubital; rb1 20:13 Follow up: IV Status: Completed infusion; IV Intake: 1000ml lp1 19:34 CANCELLED (Patient Eloped): fentaNYL (PF) 50 mcg IVP once 20:10 Drug: HALdol 2.5 mg Route: IVP; Site: left antecubital; lp1 20:58 Follow up: Response: Marked relief of symptoms lp1 20:10 Drug: Benadryl 25 mg Route: IVP; Site: left antecubital; lp1 20:58 Follow up: Response: Marked relief of symptoms lp1 Intake: 20:13 IV: 1000ml; Total: 1000ml. lp1 Outcome: 20:46 Discharge ordered by . gs 20:58 Discharged to home ambulatory, with significant other. lp1 20:58 Condition: good 20:58 Discharge instructions given to patient, Instructed on discharge instructions, follow up and referral plans. medication usage, Demonstrated understanding of instructions, follow-up care, medications, Prescriptions given X 2. 21:00 Patient left the ED. lp1 Signatures: Dispatcher [employer] EDMS Yumiko Zhao RN RN aj1 Pavel Little MD MD rn Pena, Laura, RN RN lp1 Carina Dowell RN RN rb1 Kyle Albarran MD MD gs Godinez, Sarah 3 Mandie Rodriguez sb2 Corrections: (The following items were deleted from the chart) 19:12 18:41 Reassessment: US at bedside. rb1 rb1
== END 2018-05-20 21:00 | disposition home or self-care (01) ==
LOC: ER 17:40
DX: G89.4 Chronic pain syndrome (principal); F17.210 Nicotine dependence, cigarettes, uncomplicated
CPT/HCPCS: 36415; 76705; 80048; 80076; 83690; 85025; 96361; 96374; 96375; 99284; J1630; J2405; J7030

== ENCOUNTER 2019-02-18 01:17 | Emergency (ER) | payer SELFPAY ==
--- OUTSIDE RECORDS SUMMARY | 2019-02-18 01:19 | XMS REPORT ---
:1985 [facility] [address] [place] [address] [address] [place] [address] Care Team Providers Name Role Phone CAYDEN HAYES Unavailable Unavailable ENDY, TERRY Unavailable Unavailable Problems This patient has [...] race is not provided, and the patient isAfrican-Taiwanese, multiply by 1.212. If sex is not provided, and thepatient is female, multiply by 0.742. Results for patients <18 years ofage have not been validated by the MDRD study and should be interpretedwith caution.eGFR Result Interpretation:eGFR > or=60 is in the Normal RangeeGFR < 60 may mean kidney diseaseeGFR < 15 may mean kidney failureRanges recommended by the National Kidney Foundation,http://nkdep.nih.go v [id number] 00:39:00 Test Item Value Reference Range Comments [...] code=PROPOX) THC (test code=THC) POSITIVE Negative Urinalysis [id number] 00:29:00 Test Item Value Reference Range Comments Color (test code=COLOR) Yellow Yellow,Straw,Pl yellow Clarity (test code=CLAR) Clear Clear Specific Willis (test code=SPGR) 1.026 1.001-1.035 pH (test code=PH) [...] Bacteria (test code=BACT) Few /HPF CBC with [id number] 23:55:00 Test Item Value Reference Range Comments [...] Lymph Abs (test code=ALYMPH) 1.6 K/cumm 0.5-4.6 Mcculloch Abs (test code=AMONO) 0.8 K/cumm 0.0-1.2 Eos Abs (test code=AEOS) 0.07 K/cumm 0.00-0.74 Baso Abs (test code=ABASO) 0.0 K/cumm 0.00-0.21 Comprehensive Metabolic [id number] 08:18:00 Test Item Value Reference Range Comments [...] race is not provided, and the patient isAfrican-Taiwanese, multiply by 1.212. If sex is not provided, and thepatient is female, multiply by 0.742. Results for patients <18 years ofage have not been validated by the MDRD study and should be interpretedwith caution.eGFR Result Interpretation:eGFR > or=60 is in the Normal RangeeGFR < 60 may mean kidney diseaseeGFR < 15 may mean kidney failureRanges recommended by the National Kidney Foundation,http://nkdep.nih .gov [id number] 08:18:00 Test Item Value Reference Range Comments Lipase (test code=LIP) 29 U/L 13-60 Urinalysis [id number] 07:51:00 Test Item Value Reference Range Comments Color (test code=COLOR) Yellow Yellow,Straw,Pl yellow Clarity (test code=CLAR) Clear Clear Specific Willis (test 1.024 1.001-1.035 code=SPGR) pH (test code=PH) [...] Bacteria (test code=BACT) Few /HPF BHCG, Serum, [id number] 07:20:00 Test Item Value Reference Range Comments Preg Qual [Se] (test code=BSHCG) Negative Negative CBC with [id number] 07:12:00 Test Item Value Reference Range Comments [...] Lymph Abs (test code=ALYMPH) 1.6 K/cumm 0.5-4.6 Mcculloch Abs (test code=AMONO) 0.5 K/cumm 0.0-1.2 Eos Abs (test code=AEOS) 0.08 K/cumm 0.00-0.74 Baso Abs (test code=ABASO) 0.0 K/cumm 0.00-0.21
--- NOTE | 2019-02-18 02:07 | ER ---
[facility] Name: Madison Moreland Age: 33 yrs Sex: Female : 1985 Arrival Date: 02/18/2019 Time: 01:18 Bed 7 Private MD: Diagnosis: Pain in left upper arm Presentation: 02/18 01:36 Presenting complaint: Patient states: pain in L bicep area for over 2 months. 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 CMS intact. Transition of care: patient was not received from another setting of care. Onset of symptoms was December 2018. Risk Assessment: Do you want to hurt yourself or someone else? Patient reports no desire to harm self or others. Initial Sepsis Screen: Does the patient meet any 2 criteria? No. Patient's initial sepsis screen is negative. Does the patient have a suspected source of infection? No. Patient's initial sepsis screen is negative. Care prior to arrival: None. 01:36 Method Of Arrival: Ambulatory aa1 01:36 Acuity: DULCE 5 aa1 Historical: - Allergies: 01:47 No Known Allergies; aa1 - Home Meds: 01:47 None [Active]; aa1 - PMHx: 01:47 epilepsy; aa1 - PSHx: 01:47 ; aa1 - Immunization history:: Flu vaccine is up to date. - Social history:: Smoking status: Patient uses tobacco products, smokes one pack cigarettes per day. - Ebola Screening: : No symptoms or risks identified at this time. Screenin:37 Abuse screen: Denies threats or abuse. Denies injuries from another. Nutritional aa1 screening: No deficits noted. Tuberculosis screening: No symptoms or risk factors identified. Fall Risk None identified. Assessment: 01:37 General: Appears in no apparent distress. uncomfortable, Behavior is calm, cooperative, aa1 appropriate for age. Pain: Complains of pain in left bicep and left antecubital area Pain currently is 9 out of 10 on a pain scale. Pain began 2 months ago Is continuous. Neuro: Level of Consciousness is awake, alert, obeys commands, Oriented to person, place, time, situation, Benefits Representative are equal bilaterally Moves all extremities. Full function. Cardiovascular: Pulses are 3+ in right radial artery and left radial artery. Respiratory: Airway is patent Respiratory effort is even, unlabored, Respiratory pattern is regular, symmetrical. GI: No signs and/or symptoms were reported involving the gastrointestinal system. : No signs and/or symptoms were reported regarding the genitourinary system. EENT: No signs and/or symptoms were reported regarding the EENT system. Derm: Skin is intact, is healthy with good turgor, Skin is pink, warm \T\ dry. Musculoskeletal: Circulation, motion, and sensation intact. Capillary refill < 3 seconds, Range of motion: intact in all extremities. Vital Signs: 01:36 BP 97 / 65; Pulse 65; Resp 18; Temp 98.1; Pulse Ox 100% on R/A; Weight 74.84 kg; Height aa1 5 ft. 6 in. (167.64 cm); Pain 9/10; 01:36 Body Mass Index 26.63 (74.84 kg, 167.64 cm) aa1 ED Course: 01:18 Patient arrived in ED. do 01:36 Tamiko Colbert RN is Primary Nurse. aa1 01:36 Arm band placed on right wrist. aa1 01:37 Juan Manuel Plaza MD is Attending Physician. tw4 01:37 Patient has correct armband on for positive identification. Bed in low position. Call aa1 light in reach. Pulse ox on. NIBP on. 01:37 No provider procedures requiring assistance completed. Patient did not have IV access aa1 during this emergency room visit. 01:46 Triage completed. aa1 Administered Medications: No medications were administered Outcome: 01:57 Medical screen evaluation completed per provider. Patient declined treatment. aa1 01:57 Condition: good 01:57 Following a medical screening exam, the patient was provided information regarding alternative care sites and resources available per registration personnel. 02:07 Discharge ordered by . tw4 02:07 Patient left the ED. aa1 Signatures: Tamiko Colbert RN RN aa1 Elle Casper Terrence, MD MD tw4
--- NOTE | 2019-02-18 02:07 | EDPHYS ---
Physician Documentation [facility] Name: Madison Moreland Age: 33 yrs Sex: Female : 1985 Arrival Date: 02/18/2019 Time: 01:18 Bed 7 Private MD: ED Physician Juan Manuel Plaza HPI: 02/18 01:57 This 33 yrs old Female presents to ER via Ambulatory with complaints of Arm tw4 Pain. 01:57 The patient or guardian complains of pain. The complaints affect the left bicep. tw4 Context: The problem was sustained at work. Treatment prior to arrival includes: no previous treatment. Modifying factors: The symptoms are alleviated by nothing. the symptoms are aggravated by nothing. Associated signs and symptoms: The patient has no apparent associated signs or symptoms. Severity of symptoms: At their worst the symptoms were moderate, in the emergency department the symptoms are unchanged. The patient has not experienced similar symptoms in the past. 01:57 Onset: The symptoms/episode began/occurred 2 month(s) ago. tw4 Historical: - Allergies: 01:47 No Known Allergies; aa1 - Home Meds: 01:47 None [Active]; aa1 - PMHx: 01:47 epilepsy; aa1 - PSHx: 01:47 ; aa1 - Immunization history:: Flu vaccine is up to date. - Social history:: Smoking status: Patient uses tobacco products, smokes one pack cigarettes per day. - Ebola Screening: : No symptoms or risks identified at this time. ROS: 02:03 Constitutional: Negative for fever, chills, and weight loss, Eyes: Negative for injury, tw4 pain, redness, and discharge, Cardiovascular: Negative for chest pain, palpitations, and edema, Respiratory: Negative for shortness of breath, cough, wheezing, and pleuritic chest pain, Abdomen/GI: Negative for abdominal pain, nausea, vomiting, diarrhea, and constipation, Back: Negative for injury and pain. 02:03 Skin: Negative for injury, rash, and discoloration, Neuro: Negative for headache, weakness, numbness, tingling, and seizure. 02:03 MS/extremity: Positive for pain, tenderness. Exam: 02:03 Constitutional: This is a well developed, well nourished patient who is awake, alert, tw4 and in no acute distress. Head/Face: Normocephalic, atraumatic. Chest/axilla: Normal chest wall appearance and motion. Nontender with no deformity. No lesions are appreciated. Cardiovascular: Regular rate and rhythm with a normal S1 and S2. No gallops, murmurs, or rubs. Normal PMI, no JVD. No pulse deficits. Respiratory: Lungs have equal breath sounds bilaterally, clear to auscultation and percussion. No rales, rhonchi or wheezes noted. No increased work of breathing, no retractions or nasal flaring. Abdomen/GI: Soft, non-tender, with normal bowel sounds. No distension or tympany. No guarding or rebound. No evidence of tenderness throughout. Back: No spinal tenderness. No costovertebral tenderness. Full range of motion. Neuro: Awake and alert, GCS 15, oriented to person, place, time, and situation. Cranial nerves II-XII grossly intact. Motor strength 5/5 in all extremities. Sensory grossly intact. Cerebellar exam normal. Normal gait. 02:03 Musculoskeletal/extremity: Extremities: noted in the left bicep: pain. Vital Signs: 01:36 BP 97 / 65; Pulse 65; Resp 18; Temp 98.1; Pulse Ox 100% on R/A; Weight 74.84 kg; Height aa1 5 ft. 6 in. (167.64 cm); Pain 9/10; 01:36 Body Mass Index 26.63 (74.84 kg, 167.64 cm) aa1 MDM: 01:37 Patient medically screened. 4 02:03 Data reviewed: vital signs, nurses notes. Counseling: I had a detailed discussion with [facility] the patient and/or guardian regarding: the historical points, exam findings, and any diagnostic results supporting the discharge/admit diagnosis. Medical screen evaluation completed. EMTALA emergency medical condition absent. Special discussion: I discussed with the patient/guardian in detail that at this point there is no indication for admission to the hospital. It is understood, however, that if the symptoms persist or worsen the patient needs to return immediately for re-evaluation. Administered Medications: No medications were administered Disposition: 02:03 [facility] Disposition: 02/18/19 02:07 Discharged to Home. Impression: Pain in left upper arm. - Condition is Stable. - Medication Reconciliation Form, Thank You Letter, Antibiotic Education, Prescription Opioid Use form. - Follow up: Private Physician; When: Upon discharge from the Emergency Department; Reason: If symptoms return, Recheck today's complaints, Continuance of care. - Problem is new. - Symptoms have improved. Signatures: Tamiko Colbert RN RN aa1 Juan Manuel Plaza MD MD tw4 Corrections: (The following items were deleted from the chart) 02:03 01:57 Onset: The symptoms/episode began/occurred today, tw4 tw4 02:07 02:07 02/18/2019 02:07 Discharged to Home. Impression: Pain in left upper arm. aa1 Condition is Stable. Forms are Medication Reconciliation Form, Thank You Letter, Antibiotic Education, Prescription Opioid Use. Follow up: Private Physician; When: Upon discharge from the Emergency Department; Reason: If symptoms return, Recheck today's complaints, Continuance of care. Problem is new. Symptoms have improved. tw4
== END 2019-02-18 02:07 | disposition home or self-care (01) ==
LOC: ER 01:17
DX: M79.622 Pain in left upper arm (principal); F17.210 Nicotine dependence, cigarettes, uncomplicated
CPT/HCPCS: 99282

== ENCOUNTER 2021-02-03 09:42 | Emergency (ER) | payer SELFPAY ==
--- OUTSIDE RECORDS SUMMARY | 2021-02-03 09:44 | XMS REPORT | Continuity of Care Document ---
:1985 Author Organization [facility] t Address [address] [place] [address] Care Team Providers Name Role Phone SHAMSEE Attending Clinician Unavailable ENDY Attending Clinician Unavailable SHAMSEE Admitting Clinician Unavailable ENDY Admitting Clinician Unavailable Problems This patient has no known problems. Allergies, Adverse Reactions, Alerts This patient has no known allergies or adverse reactions. Medications This patient has no known medications. Procedures This patient has no known procedures. Results Test Description Test Time Test Comments Results Result Comments Source Comprehensive Metabolic Panel 2017-01-05 02:18:00 Test Item Value Reference Range Interpretation Comme nts Sodium (test code = NA) 138 mmol/L 135-145 N Potassium (test code = K) 3.0 mmol/L 3.5-5.1 L Chloride (test code = CL) 95 mmol/L 98-105 L Carbon Dioxide (test code = 32 mmol/L 22-29 H CO2) Glucose (test code = GLU) 143 mg/dL 70-115 H Blood Urea Nitrogen (test 19 mg/dL 6-20 N code = BUN) Creatinine (test code = 0.9 mg/dL 0.5-0.9 N CREAT) Calcium (test code = CA) 10.0 mg/dL 8.3-10.5 N Prot Total (test code = TP) 7.3 g/dL 6.4-8.3 N Albumin (test code = ALB) 4.6 g/dL 3.5-5.2 N A/G Ratio (test code = 1.7 Ratio AGRATIO) Globulin (test code = GLOB) 2.7 2.9-3.1 L Bili Total (test code = 0.3 mg/dL 0.1-0.9 N TBIL) Alk Phos (test code = 82 U/L 35-104 N APHOS) AST (test code = AST) 15 U/L 1-32 N ALT (test code = ALT) 12 U/L 1-33 N BUN/Creatinine Ratio (test 21.1 code = BCRATIO) Anion Gap (test code = 11 mmol/L 7-16 N AGAP) Estimated GFR (test code = >60 mL/min/1.73m2 eGFR (estimated Glomerular GFR) Filtration Rate ) is an estimated value ,calculated from the patien t's serum creatinine usin g the MDRD equation.It is NOT the patient's actua l GFR. The eGFR provides a more clinicallyusefu l measure of kidney disease than serum creatinine vin e.This calculation lauren es sex and race into accou nt, if the informationis p rovided. If the race is not provided, and the patient isAfrican-Ameri can, multiply by 1.212. If se x is not provided, and t hepatient is female, multipl y by 0.742. Results for pat ients <18 years ofage hav e not been validated by e MDRD study and should be i nterpretedwith caution.eGFR Re sult Interpretation: eGFR > or = 60 is in the Alyssa l RangeeGFR < 60 may mean kid kaylin diseaseeGFR < 1 5 may mean kidney failure* Ranges recommended by the National Kidney Foundation,http ://nkdep.nih.g ov [id number] 00:39:00 Test Item Value Reference Range Interpretation Comments Amphetamine (test code Negative Negative N For d iagnostic purposes = AMPH) only, positive results should always b e assessedin conjunctionwith the patient's medic al history,clinica l examination and otherfindings.T o fulfill legal requirements, a more specific altern ate chemical method must be used inorder to obtain a Confirmed nataliia lytical result. GC/MS i s the preferred confi rmatory method. Barbiturates (test POSITIVE Negative A code = ROSAMARIA) Benzodiazepine (test Negative Negative N code = ANTONY) Cocaine (test code = Negative Negative N COCA) Methadone (test code = Negative Negative N MTHD) Opiates (test code = Negative Negative N OPIA) PCP (test code = PCP) Negative Negative N Propoxyphene (test Negative Negative N code = PROPOX) THC (test code = THC) POSITIVE Negative A Urinalysis [id number] 00:29:00 Test Item Value Reference Range Interpretation Comments Color (test code = COLOR) Yellow Yellow,Straw,Pl N yellow Clarity (test code = Clear Clear N CLAR) Specific [place] (test 1.026 1.001-1.035 N code = SPGR) pH (test code = PH) 9.0 5.0-9.0 N Ketone (test code = KET) 5 mg/dL Negative A Glucose (test code = Negative mg/dL Negative N GLUCUR) Protein (test code = 75 mg/dL Negative A PROT) Bilirubin (test code = Negative mg/dL Negative N BILI) Occult Blood (test code = Moderate Negative A UDOB) Urobilinogen (test code = 0.2 mg/dL 0.2-1.0 N UROB) Nitrite (test code = NIT) Negative Negative N Leuk Esterase (test code Negative Negative N = LEUK) Micros Exam (test code = Indicated MEXAM) Epithelial Cells (test 20-29 /LPF 0-30 A code = EPI) WBC, Urine (test code = 0-1 /HPF 0-5 A UWBC) RBC, Urine (test code = None Seen /HPF 0-5 A URBC) Bacteria (test code = Few /HPF BACT) CBC with [id number] 23:55:00 Test Item Value Reference Range Interpretation Comments WBC (test code = WBC) 14.9 K/cumm 4.4-10.5 H RBC (test code = RBC) 5.13 M/cumm 3.75-5.20 N Hemoglobin (test code = HGB) 15.0 gm/dL 12.2-14.8 H Hematocrit (test code = HCT) 45.5 % 36.5-44.4 H MCV (test code = MCV) 88.8 fL 80-100 N MCH (test code = MCH) 29.3 pg 27.0-32.5 N MCHC (test code = MCHC) 33.0 g/dL 32.0-37.5 N RDW (test code = RDW) 13.9 % 11.5-14.5 N Platelet Count (test code = 304 K/cumm 140-440 N PLTCT) MPV (test code = MPV) 9.0 fL Diff Method (test code = DIFFM) Auto Neutrophil (test code = NEUT) 83.6 % 36-70 H Lymphocyte (test code = LYMPH) 10.5 % 12-44 L Monocyte (test code = MONO) 5.3 % 0-11 N Eosinophil (test code = EOS) 0.5 % 0-7 N Basophil (test code = BASO) 0.1 % 0-2 N Neutro Abs (test code = ANEUT) 12.5 K/cumm 1.6-7.4 H Lymph Abs (test code = ALYMPH) 1.6 K/cumm 0.5-4.6 N [place]ord Abs (test code = AMONO) 0.8 K/cumm 0.0-1.2 N Eos Abs (test code = AEOS) 0.07 K/cumm 0.00-0.74 N Baso Abs (test code = ABASO) 0.0 K/cumm 0.00-0.21 N Comprehensive Metabolic [id number] 08:18:00 Test Item Value Reference Range Interpretation Comments Sodium (test code = 141 mmol/L 135-145 N NA) Potassium (test 3.7 mmol/L 3.5-5.1 N code = K) Chloride (test code 99 mmol/L 98-105 N = CL) Carbon Dioxide 29 mmol/L 22-29 N (test code = CO2) Glucose (test code 150 mg/dL 70-115 H = GLU) Blood Urea Nitrogen 18 mg/dL 6-20 N (test code = BUN) Creatinine (test 0.9 mg/dL 0.5-0.9 N code = CREAT) Calcium (test code 10.1 mg/dL 8.3-10.5 N = CA) Prot Total (test 7.8 g/dL 6.4-8.3 N code = TP) Albumin (test code 4.7 g/dL 3.5-5.2 N = ALB) A/G Ratio (test 1.5 Ratio code = AGRATIO) Globulin (test code 3.1 2.9-3.1 N = GLOB) Bili Total (test 0.2 mg/dL 0.1-0.9 N code = TBIL) Alk Phos (test code 89 U/L 35-104 N = APHOS) AST (test code = 15 U/L 1-32 N AST) ALT (test code = 12 U/L 1-33 N ALT) BUN/Creatinine 20.0 Ratio (test code = BCRATIO) Anion Gap (test 13 mmol/L 7-16 N code = AGAP) Estimated GFR (test >60 eGFR (es timated code = GFR) mL/min/1.73m2 Glomerular Kike tration Rate) is an est imated value,calculate d from the patient's s katerin creatinine usin g the MDRD equation.I t is NOT the patient 's actual GFR. The eGFR provides a more clinicallyusefu l measure of kidn ey disease than se rum creatinine alone.This calculation lauren es sex and race into account, if the informationis provided. If th e race is not provided , and the patient isAfrican-Ameri can, multiply by 1.2 12. If sex is not prov ided, and thepatient is female, multipl y by 0.742. Results for patients <18 ye ars ofage have not been validated by th e MDRD study and shoul d be interpretedwith caution.eGFR Re sult Interpretation: eGFR > or = 60 is in t he Normal RangeeGF R < 60 may mean kidney diseaseeGFR < 1 5 may mean kidney failureRange s recommended by the National Kidney Foundation,http ://nkd ep.nih.gov [id number] 08:18:00 Test Item Value Reference Range Interpretation Comments Lipase (test code = LIP) 29 U/L 13-60 N Urinalysis [id number] 07:51:00 Test Item Value Reference Range Interpretation Comments Color (test code = Yellow Yellow,Straw,Pl N COLOR) yellow Clarity (test code = Clear Clear N CLAR) Specific [place] (test 1.024 1.001-1.035 N code = SPGR) pH (test code = PH) 9.0 5.0-9.0 N Ketone (test code = Negative mg/dL Negative N KET) Glucose (test code = Negative mg/dL Negative N GLUCUR) Protein (test code = 75 mg/dL Negative A PROT) Bilirubin (test code = Negative mg/dL Negative N BILI) Occult Blood (test code Moderate Negative A = UDOB) Urobilinogen (test code 0.2 mg/dL 0.2-1.0 N = UROB) Nitrite (test code = Negative Negative N NIT) Leuk Esterase (test Negative Negative N code = LEUK) Ictotest (test code = Confirmed Negative Negative,Confirmed N ICTOTEST) Negative Micros Exam (test code Indicated = MEXAM) Epithelial Cells (test /LPF 0-30 A code = EPI) WBC, Urine (test code = 0-5 /HPF 0-5 N UWBC) RBC, Urine (test code = 0-3 /HPF 0-5 A URBC) Bacteria (test code = Few /HPF BACT) BHCG, Serum, [id number] 07:20:00 Test Item Value Reference Range Interpretation Comments Preg Qual [Se] (test code = BSHCG) Negative Negative N CBC with [id number] 07:12:00 Test Item Value Reference Range Interpretation Comments WBC (test code = WBC) 15.5 K/cumm 4.4-10.5 H RBC (test code = RBC) 5.46 M/cumm 3.75-5.20 H Hemoglobin (test code = HGB) 15.8 gm/dL 12.2-14.8 H Hematocrit (test code = HCT) 49.9 % 36.5-44.4 H MCV (test code = MCV) 91.4 fL 80-100 N MCH (test code = MCH) 29.0 pg 27.0-32.5 N MCHC (test code = MCHC) 31.7 g/dL 32.0-37.5 L RDW (test code = RDW) 13.7 % 11.5-14.5 N Platelet Count (test code = 317 K/cumm 140-440 N PLTCT) MPV (test code = MPV) 8.9 fL Diff Method (test code = DIFFM) Auto Neutrophil (test code = NEUT) 86.1 % 36-70 H Lymphocyte (test code = LYMPH) 10.0 % 12-44 L Monocyte (test code = MONO) 3.2 % 0-11 N Eosinophil (test code = EOS) 0.5 % 0-7 N Basophil (test code = BASO) 0.1 % 0-2 N Neutro Abs (test code = ANEUT) 13.4 K/cumm 1.6-7.4 H Lymph Abs (test code = ALYMPH) 1.6 K/cumm 0.5-4.6 N [place] Abs (test code = AMONO) 0.5 K/cumm 0.0-1.2 N Eos Abs (test code = AEOS) 0.08 K/cumm 0.00-0.74 N Baso Abs (test code = ABASO) 0.0 K/cumm 0.00-0.21 N
--- NOTE | 2021-02-03 11:23 | EDPHYS ---
Physician Documentation [facility] Name: Madison Moreland Age: 35 yrs Sex: Female : 1985 Arrival Date: 02/03/2021 Time: 09:46 Bed 24 Private MD: ED Physician Kevin Hayden HPI: 02/03 10:53 This 35 yrs old Female presents to ER via Ambulatory with complaints of jmm Abscess. 10:53 The patient presents with an abscess of the abdomen. Onset: The symptoms/episode jmm began/occurred gradually, 1 week(s) ago. Possible cause(s): unknown. Associated signs and symptoms: Pertinent positives: discharge, drainage, erythema, Pertinent negatives: fever. Modifying factors: the symptoms are alleviated by nothing, the symptoms are aggravated by nothing. Patient states using haylee which allowed it to drain. . Historical: - Allergies: 10:39 No Known Allergies; ss - Home Meds: 10:39 None [Active]; ss - PMHx: 10:39 None; ss - PSHx: 10:39 None; ss - Immunization history:: Adult Immunizations unknown. - Social history:: Smoking status: Patient reports the use of cigarette tobacco products, smokes one pack cigarettes per day. ROS: 10:53 Constitutional: Negative for fever, chills, and weight loss, Cardiovascular: Negative jmm for chest pain, palpitations, and edema, Respiratory: Negative for shortness of breath, cough, wheezing, and pleuritic chest pain. 10:53 Skin: Positive for abscess. 10:53 All other systems are negative. Exam: 10:53 Constitutional: This is a well developed, well nourished patient who is awake, alert, jmm and in no acute distress. Head/Face: atraumatic. Eyes: EOMI, no conjunctival erythema appreciated ENT: Moist Mucus Membranes Neck: Trachea midline, Supple Chest/axilla: Normal chest wall appearance and motion. Cardiovascular: Regular rate and rhythm. No edema appreciated Respiratory: Normal respirations, no respiratory distress appreciated Abdomen/GI: Non distended, soft Back: Normal ROM 10:53 Skin: non fluctuant abscess noted to the llq of the abdomen. 10:53 Neuro: Orientation: is normal, Mentation: is normal, Memory: is normal. 10:53 Psych: Behavior/mood is pleasant, cooperative. Vital Signs: 10:34 BP 139 / 78; Pulse 80; Resp 16; Temp 97.4(TE); Pulse Ox 100% on R/A; Weight 72.57 kg; ss Height 5 ft. 6 in. (167.64 cm); Pain 3/10; 10:34 Body Mass Index 25.82 (72.57 kg, 167.64 cm) ss MDM: 10:53 Patient medically screened. [facility] 11:18 Data reviewed: vital signs, nurses notes. Counseling: I had a detailed discussion with marquise the patient and/or guardian regarding: the historical points, exam findings, and any diagnostic results supporting the discharge/admit diagnosis, the need for outpatient follow up, to return to the emergency department if symptoms worsen or persist or if there are any questions or concerns that arise at home. ED course: Patient is alert and non toxic in appearance in the ED. Patient given wound infection return precautions. Patient understood and agrees with the plan of care. . Administered Medications: No medications were administered Disposition: 12:06 Co-signature as Attending Physician, Kevin Hayden MD I agree with the assessment and kdr plan of care. Disposition: 02/03/21 11:22 Discharged to Home. Impression: Cutaneous Abscess of the Lower Abdomen. - Condition is Stable. - Discharge Instructions: Skin Abscess. - Prescriptions for Bactrim DS 800- 160 mg Oral Tablet - take 1 tablet by ORAL route every 12 hours for 10 days; 20 tablet. - Medication Reconciliation Form, Thank You Letter, Antibiotic Education, Prescription Opioid Use form. - Follow up: Private Physician; When: 2 - 3 days; Reason: Recheck today's complaints, Continuance of care, Re-evaluation by your physician. Signatures: Kevin Hayden MD MD [facility] Tad Trevino PA PA jmm Smirch, Shelby, RN RN Ev Dutton, KINGS RN Corrections: (The following items were deleted from the chart) 11:47 11:22 02/03/2021 11:22 Discharged to Home. Impression: Cutaneous Abscess of the Lower hb Abdomen. Condition is Stable. Forms are Medication Reconciliation Form, Thank You Letter, Antibiotic Education, Prescription Opioid Use. Follow up: Private Physician; When: 2 - 3 days; Reason: Recheck today's complaints, Continuance of care, Re-evaluation by your physician. sandeepm
--- NOTE | 2021-02-03 11:23 | ER ---
Nurse's Notes [facility] Name: Madison Moreland Age: 35 yrs Sex: Female : 1985 Arrival Date: 02/03/2021 Time: 09:46 Bed 24 Private MD: Diagnosis: Cutaneous Abscess of the Lower Abdomen Presentation: 02/03 10:34 Chief complaint: Patient states: possible abscess to side of C section scar. 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 Denies fever. Coronavirus screen: Client denies travel out of the [place] in the last 14 days. Ebola Screen: Patient denies exposure to infectious person. Patient denies travel to an Ebola-affected area in the 21 days before illness onset. Initial Sepsis Screen: Does the patient meet any 2 criteria? No. Patient's initial sepsis screen is negative. Does the patient have a suspected source of infection? No. Patient's initial sepsis screen is negative. Risk Assessment: Do you want to hurt yourself or someone else? Patient reports no desire to harm self or others. Onset of symptoms is unknown. 10:34 Method Of Arrival: Ambulatory ss 10:34 Acuity: DULCE 4 ss Historical: - Allergies: 10:39 No Known Allergies; ss - Home Meds: 10:39 None [Active]; ss - PMHx: 10:39 None; ss - PSHx: 10:39 None; ss - Immunization history:: Adult Immunizations unknown. - Social history:: Smoking status: Patient reports the use of cigarette tobacco products, smokes one pack cigarettes per day. Screenin:34 Abuse screen: Denies threats or abuse. Denies injuries from another. Nutritional ss screening: No deficits noted. Tuberculosis screening: Never had TB. Fall Risk None identified. Assessment: 10:34 General: Appears in no apparent distress. comfortable, Behavior is calm, cooperative, ss Denies fever, feeling ill, fatigue, chills. Pain: Complains of pain in left lower quadrant Pain currently is 3 out of 10 on a pain scale. Neuro: Level of Consciousness is awake, alert, obeys commands, Oriented to person, place, time, situation. Respiratory: Airway is patent Respiratory effort is even, unlabored, Respiratory pattern is regular, symmetrical. GI: Patient currently denies abdominal pain. EENT: Nares are clear Oral mucosa is moist. Derm: Skin is intact, is healthy with good turgor, Skin is dry, Abscess located on left lower quadrant is dime sized, has purulent drainage. Musculoskeletal: Circulation, motion, and sensation intact. Range of motion: intact in all extremities, Swelling absent. Vital Signs: 10:34 BP 139 / 78; Pulse 80; Resp 16; Temp 97.4(TE); Pulse Ox 100% on R/A; Weight 72.57 kg; ss Height 5 ft. 6 in. (167.64 cm); Pain 3/10; 10:34 Body Mass Index 25.82 (72.57 kg, 167.64 cm) ED Course: 09:46 Patient arrived in ED. mr 10:34 Patient has correct armband on for positive identification. Bed in low position. Call ss light in reach. 10:36 Triage completed. 10:39 Arm band placed on right wrist. 10:42 Tad Trevino PA is PHCP. [facility] 10:42 Kevin Hayden MD is Attending Physician. [facility] 11:46 No provider procedures requiring assistance completed. Patient did not have IV access hb during this emergency room visit. Administered Medications: No medications were administered Outcome: 11:22 Discharge ordered by . [facility] 11:46 Discharged to home ambulatory. hb 11:46 Condition: stable 11:46 Discharge instructions given to patient, Instructed on discharge instructions, follow up and referral plans. medication usage, wound care, Demonstrated understanding of instructions, follow-up care, medications, Prescriptions given X 1. 11:47 Patient left the ED. hb Signatures: Tad Trevino PA PA jmm Rivera, Mary Christen Skaggs, RN RN Ev Dutton RN RN hb
[2021-02-03 11:52] VITALS: BP 139/78; TEMP 97.4; O2SAT 100
== END 2021-02-03 11:47 | disposition home or self-care (01) ==
LOC: ER 09:42
DX: L02.211 Cutaneous abscess of abdominal wall (principal); F17.210 Nicotine dependence, cigarettes, uncomplicated
CPT/HCPCS: 99282

== ENCOUNTER 2021-02-23 17:00 | Emergency (ER) | payer SELFPAY ==
--- OUTSIDE RECORDS SUMMARY | 2021-02-23 17:02 | XMS REPORT | Continuity of Care Document ---
:1985 Author Organization [facility] t Address [address] [place] [address] Care Team Providers Name Role Phone SHAMSEE [...] by the National Kidney Foundation,http ://nkdep.nih.g ov [id number] 00:39:00 Test Item Value Reference Range Interpretation [...] code = THC) POSITIVE Negative A Urinalysis [id number] 00:29:00 Test Item Value Reference Range Interpretation Comments Color (test code = COLOR) Yellow Yellow,Straw,Pl N yellow Clarity (test code = Clear Clear N CLAR) Specific [place] (test 1.026 1.001-1.035 N code = SPGR) [...] code = Few /HPF BACT) CBC with [id number] 23:55:00 Test Item Value Reference Range Interpretation [...] code = ALYMPH) 1.6 K/cumm 0.5-4.6 N [place] Abs (test code = AMONO) 0.8 K/cumm 0.0-1.2 N Eos Abs (test code = AEOS) 0.07 K/cumm 0.00-0.74 N Baso Abs (test code = ABASO) 0.0 K/cumm 0.00-0.21 N Comprehensive Metabolic [id number] 08:18:00 Test Item Value Reference Range Interpretation [...] by the National Kidney Foundation,http ://nkd ep.nih.gov [id number] 08:18:00 Test Item Value Reference Range Interpretation Comments Lipase (test code = LIP) 29 U/L 13-60 N Urinalysis [id number] 07:51:00 Test Item Value Reference Range Interpretation Comments Color (test code = Yellow Yellow,Straw,Pl N COLOR) yellow Clarity (test code = Clear Clear N CLAR) Specific [place] (test 1.024 1.001-1.035 N code = SPGR) [...] code = Few /HPF BACT) BHCG, Serum, [id number] 07:20:00 Test Item Value Reference Range Interpretation Comments Preg Qual [Se] (test code = BSHCG) Negative Negative N CBC with [id number] 07:12:00 Test Item Value Reference Range Interpretation [...] code = ALYMPH) 1.6 K/cumm 0.5-4.6 N [place] Abs (test code = AMONO) 0.5 K/cumm 0.0-1.2 N Eos Abs (test code = AEOS) 0.08 K/cumm 0.00-0.74 N Baso Abs (test code = ABASO) 0.0 K/cumm 0.00-0.21 N
--- NOTE | 2021-02-23 17:54 | RAD REPORT ---
EXAM DESCRIPTION: RAD - Lumbar Spine 3 Views - 02/23/2021 5:45 pm CLINICAL HISTORY: Back pain FINDINGS: The alignment of the lumbar spine is satisfactory. No fracture or dislocation is seen. Minimal spondylosis involves the lumbar spine
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
[2021-02-23] MEDS ORDERED: ONDANSETRON 4 MG (ODT) TAB ONE (20:04)
[2021-02-23] MEDS ORDERED: MORPHINE 4 MG/ML SYR ONE (20:04)
[2021-02-23] MEDS ORDERED: DIAZEPAM 5 MG TABLET ONE (20:05)
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
[2021-02-23] MEDS ORDERED: KETOROLAC 30 MG/ML INJ ONE (21:04)
[2021-02-23 21:37] VITALS: BP 125/86; O2SAT 97
[2021-02-23 21:39] VITALS: TEMP 97
== END 2021-02-23 20:53 | disposition home or self-care (01) ==
LOC: ER 17:00
DX: S39.012A Strain of muscle, fascia and tendon of lower back, initial encounter (principal); S29.012A Strain of muscle and tendon of back wall of thorax, initial encounter; S16.1XXA Strain of muscle, fascia and tendon at neck level, initial encounter; V49.40XA Driver injured in collision with unspecified motor vehicles in traffic accident, initial encounter; Z88.5 Allergy status to narcotic agent; F17.210 Nicotine dependence, cigarettes, uncomplicated
CPT/HCPCS: 70450; 72100; 72125; 96372; 99283

== ENCOUNTER 2022-02-14 08:02 | Emergency (ER) | payer SELFPAY ==
--- OUTSIDE RECORDS SUMMARY | 2022-02-14 08:06 | XMS REPORT | Continuity of Care Document ---
:1985 Author Organization [facility] t Address [address] [place] [address] Care Team Providers Name Role Phone SHAMSEE [...] by the National Kidney Foundation,http ://nkdep.nih.g ov [id number] 00:39:00 Test Item Value Reference Range Interpretation [...] code = THC) POSITIVE Negative A Urinalysis [id number] 00:29:00 Test Item Value Reference Range Interpretation Comments Color (test code = COLOR) Yellow Yellow,Straw,Pl N yellow Clarity (test code = Clear Clear N CLAR) Specific [place] (test 1.026 1.001-1.035 N code = SPGR) [...] code = Few /HPF BACT) CBC with [id number] 23:55:00 Test Item Value Reference Range Interpretation [...] code = ALYMPH) 1.6 K/cumm 0.5-4.6 N [place] Abs (test code = AMONO) 0.8 K/cumm 0.0-1.2 N Eos Abs (test code = AEOS) 0.07 K/cumm 0.00-0.74 N Baso Abs (test code = ABASO) 0.0 K/cumm 0.00-0.21 N Comprehensive Metabolic [id number] 08:18:00 Test Item Value Reference Range Interpretation [...] by the National Kidney Foundation,http ://nkd ep.nih.gov [id number] 08:18:00 Test Item Value Reference Range Interpretation Comments Lipase (test code = LIP) 29 U/L 13-60 N Urinalysis [id number] 07:51:00 Test Item Value Reference Range Interpretation Comments Color (test code = Yellow Yellow,Straw,Pl N COLOR) yellow Clarity (test code = Clear Clear N CLAR) Specific [place] (test 1.024 1.001-1.035 N code = SPGR) [...] code Indicated = MEXAM) Epithelial Cells (test 20 /LPF 0-30 A code = EPI) WBC, Urine (test code = 0-5 /HPF 0-5 N UWBC) RBC, Urine (test code = 0-3 /HPF 0-5 A URBC) Bacteria (test code = Few /HPF BACT) BHCG, Serum, [id number] 07:20:00 Test Item Value Reference Range Interpretation Comments Preg Qual [Se] (test code = BSHCG) Negative Negative N CBC with [id number] 07:12:00 Test Item Value Reference Range Interpretation [...] code = ALYMPH) 1.6 K/cumm 0.5-4.6 N [place] Abs (test code = AMONO) 0.5 K/cumm 0.0-1.2 N Eos Abs (test code = AEOS) 0.08 K/cumm 0.00-0.74 N Baso Abs (test code = ABASO) 0.0 K/cumm 0.00-0.21 N
[2022-02-14 09:05] LABS: Urine Blood 1+ (Negative); Urine Glucose Trace (Negative); Urine Protein Negative (Negative); Urine pH 5.5 (5.0-7.0)
[2022-02-14 09:28] LABS: Absolute Lymphocytes (CBC) 0.5 K/uL (0.7-4.9); Hematocrit 43.8 % (36.0-45.0); MPV 8.2 fL (7.6-11.3); RBC Red Blood Cell Count 4.71 M/uL (3.86-4.86)
[2022-02-14 09:50] LABS: Albumin 4.1 g/dL (3.4-5.0); Bilirubin Total 0.9 mg/dL (0.2-1.0); Potassium 3.4 mmol/L (3.5-5.1); Protein, Total 8.2 g/dL (6.4-8.2)
[2022-02-14] MEDS ORDERED: NA CHLORIDE 0.9% 1,000 ML ONE (09:52)
[2022-02-14] MEDS ORDERED: ACETAMINOPHEN 325 MG TABLET ONE (09:52)
[2022-02-14 10:42] LABS: SARS-COV-2 RT PCR NEGATIVE (NEGATIVE)
--- NOTE | 2022-02-14 10:42 | RAD REPORT ---
EXAM DESCRIPTION: CTAbdomen Pelvis W Contrast - 02/14/2022 10:28 am CLINICAL HISTORY: flank pain COMPARISON: Abdomen Pelvis W Contrast dated 05/18/2018 TECHNIQUE: CT of the abdomen and pelvis was performed. All CT scans are performed using dose optimization technique as appropriate and may include automated exposure control or mA/KV adjustment according to patient size. FINDINGS: Lower chest: No acute abnormality. Liver: No acute abnormality or suspicious lesions. Biliary: No biliary ductal dilatation. Stomach: No significant focal abnormality. Duodenum: No significant focal abnormality. Pancreas: No significant abnormality. Spleen: No significant abnormality. Adrenal: No suspicious lesions. Kidney/ureter: No hydronephrosis. No renal calculi. Left urothelial thickening. Retroperitoneum: No retroperitoneal adenopathy. Vascular: No aneurysm. Bowel: No significant focal abnormality. Peritoneum: No ascites or free air. Bladder: Circumferential bladder wall thickening. Reproductive: Trace free fluid. Bones: No acute fracture. Other: n/a IMPRESSION: Findings concerning for left-sided pyelonephritis secondary to and ascending urinary tra ct infection. No abscess at this time. No hydronephrosis .
[2022-02-14] MEDS ORDERED: NA CHLORIDE 0.9% 100 ML IV ONE (11:46)
[2022-02-14] MEDS ORDERED: CEFTRIAXONE 1000 MG/VIAL ONE (11:46)
[2022-02-14 11:49] LABS: Blood Morphology Comment NOT SEEN (NOT SEEN); Platelet Estimate ADEQ
--- NOTE | 2022-02-14 12:32 | EDPHYS ---
Physician Documentation [facility] Name: Madison Moreland Age: 36 yrs Sex: Female : 1985 Arrival Date: 02/14/2022 Time: 08:03 Bed 10 Private MD: [place] Physician Lewis Carpenter HPI: 02/14 08:47 This 36 yrs old Female presents to ER via EMS with complaints of Low Back Pain. jmm 08:47 The patient presents with pain that is acute. Onset: The symptoms/episode jmm began/occurred gradually, 2 day(s) ago. Modifying factors: The patient symptoms are alleviated by nothing, the patient symptoms are aggravated by any movement. Associated signs and symptoms: Pertinent positives: abdominal pain, dysuria. The patient has not experienced similar symptoms in the past. Historical: - Allergies: 08:08 Lortab; iw - PMHx: 08:46 Bipolar disorder; epilepsy; iw ROS: 08:47 Cardiovascular: Negative for chest pain, palpitations, and edema, Respiratory: Negative jmm for shortness of breath, cough, wheezing, and pleuritic chest pain. 08:47 Constitutional: Positive for body aches, chills. 08:47 Abdomen/GI: Positive for nausea. 08:47 Back: Positive for flank pain, on the left. 08:47 All other systems are negative. Exam: 08:47 Constitutional: This is a well developed, well nourished patient who is awake, alert, jmm and in no acute distress. Head/Face: atraumatic. Eyes: EOMI, no conjunctival erythema appreciated ENT: Moist Mucus Membranes Neck: Trachea midline, Supple Chest/axilla: Normal chest wall appearance and motion. Cardiovascular: Regular rate and rhythm. No edema appreciated Respiratory: Normal respirations, no respiratory distress appreciated Abdomen/GI: Non distended, soft 08:47 Skin: General appearance color normal MS/ Extremity: Moves all extremities, no obvious deformities appreciated, no edema noted to the lower extremities Neuro: Awake and alert Psych: Behavior is normal, Mood is normal, Patient is cooperative and pleasant 08:47 Back: CVA tenderness, that is moderate, is noted on the left. Vital Signs: 08:45 BP 94 / 74; Pulse 87; Resp 16; Temp 98.5; Pulse Ox 99% on R/A; iw MDM: 08:47 Patient medically screened. [facility] 12:22 Data reviewed: vital signs, nurses notes. Counseling: I had a detailed discussion with [facility] the patient and/or guardian regarding: the historical points, exam findings, and any diagnostic results supporting the discharge/admit diagnosis, lab results, to return to the emergency department if symptoms worsen or persist or if there are any questions or concerns that arise at home. 02/14 08:48 Order name: CBC with Diff; Complete Time: 11:51 [facility] 02/14 08:48 Order name: CMP; Complete Time: 09:50 [facility] 02/14 08:48 Order name: Lipase; Complete Time: 09:50 [facility] 02/14 08:49 Order name: COVID-19/FLU A+B (Document "Date of Onset" if Symptomatic); Complete Time: [facility] 10:43 02/14 09:04 Order name: Urine --Ancillary (enter results); Complete Time: 09:50 02/14 09:06 Order name: Urine Dipstick-Ancillary; Complete Time: 09:27 [facility] 02/14 08:48 Order name: IV Saline Lock; Complete Time: 09:29 [facility] 02/14 08:48 Order name: Labs collected and sent; Complete Time: 09:29 [facility] 02/14 08:48 Order name: Urine Dipstick-Ancillary (obtain specimen); Complete Time: 09:04 [facility] 02/14 08:49 Order name: CT Abd/Pelvis - IV Contrast Only; Complete Time: 10:43 [facility] 02/14 11:49 Order name: Manual Differential; Complete Time: 11:51 [facility] 02/14 08:48 Order name: Urine Test (obtain specimen); Complete Time: 09:04 [facility] Administered Medications: 09:54 Drug: NS 0.9% 1000 ml Route: IV; Rate: 1 bolus; Site: right antecubital; 11:20 Follow up: IV Status: Completed infusion 09:54 Drug: Acetaminophen 650 mg Route: PO; 11:45 Drug: Rocephin (cefTRIAXone) 2 grams Route: IV; Rate: calculated rate; Site: right iw antecubital; 11:50 Follow up: IV Status: Completed infusion Disposition Summary: 02/14/22 12:32 Discharge Ordered Location: Home [facility] Condition: Stable [facility] Diagnosis - Left Pyelonephritis [facility] Followup: marquise - With: Private Physician - When: 2 - 3 days - Reason: Recheck today's complaints, Continuance of care, Re-evaluation by your physician Discharge Instructions: - Discharge Summary Sheet sandeep - Pyelonephritis, Adult sandeep Forms: - Medication Reconciliation Form sandeep - Thank You Letter marquise - Antibiotic Education marquise - Prescription Opioid Use sandeep - Work release form aa5 Prescriptions: - ondansetron 4 mg Oral tablet,disintegrating - take 1 tablet by ORAL route every 4-6 hours; 20 tablet; Refills: 0, Product [facility] Selection Permitted - orphenadrine citrate 100 mg Oral Tablet Sustained Release - take 1 tablet by ORAL route 2 times per day As needed; 20 tablet; Refills: 0, [facility] Product Selection Permitted - cefpodoxime 200 mg Oral Tablet - take 1 tablet by ORAL route every 12 hours for 10 days with food; 20 tablet; [facility] Refills: 0, Product Selection Permitted Signatures: Dispatcher [employer] Tad Hicks PA PA jmm Williams, Irene, RN RN iw
--- NOTE | 2022-02-14 12:32 | ER ---
Nurse's Notes [facility] Name: Madison Moreland Age: 36 yrs Sex: Female : 1985 Arrival Date: 02/14/2022 Time: 08:03 Bed 10 Private MD: Diagnosis: Left Pyelonephritis Presentation: 02/14 08:07 Chief complaint: EMS states: sudden onset back pain and burning with urination, took iw OTC test and was positive for UTI , pain is worse onleft side, had fever at home. Coronavirus screen: At this time, the client does not indicate any symptoms associated with coronavirus-19. Ebola Screen: Patient negative for fever greater than or equal to 101.5 degrees Fahrenheit, and additional compatible Ebola Virus Disease symptoms Patient denies exposure to infectious person. Patient denies travel to an Ebola-affected area in the 21 days before illness onset. No symptoms or risks identified at this time. Initial Sepsis Screen: Does the patient meet any 2 criteria? No. Patient's initial sepsis screen is negative. Risk Assessment: Do you want to hurt yourself or someone else? Patient reports no desire to harm self or others. Onset of symptoms was February 13, 2022. 08:07 Acuity: DULCE 4 iw 08:07 Method Of Arrival: EMS: [facility] iw 08:45 Initial Sepsis Screen: Does the patient have a suspected source of infection? No. iw Patient's initial sepsis screen is negative. 08:45 Acuity: DULCE 3 iw Triage Assessment: 13:08 General: Appears. iw Historical: - Allergies: 08:08 Lortab; iw - PMHx: 08:46 Bipolar disorder; epilepsy; iw Screenin:59 Abuse screen: Denies threats or abuse. Denies injuries from another. iw Assessment: 12:59 Reassessment: Patient and/or family updated on plan of care and expected duration. Pain iw level reassessed. Patient is alert, oriented x 3, equal unlabored respirations, skin warm/dry/pink. Vital Signs: 08:45 BP 94 / 74; Pulse 87; Resp 16; Temp 98.5; Pulse Ox 99% on R/A; iw ED Course: 08:03 Patient arrived in ED. as 08:08 Triage completed. iw 08:47 Tad Trevino PA is PHCP. jmm 08:47 Lewis Carpenter MD is Attending Physician. jmm 09:04 Arm band placed on. iw 09:26 Sravanthi Jaffe, RN is Primary Nurse. iw 09:28 Initial lab(s) drawn, by me, sent to lab. Inserted saline lock: 22 gauge in right mh5 antecubital area, using aseptic technique. Blood collected. 09:29 CBC with Diff Sent. mh5 09:29 CMP Sent. 5 09:31 Patient has correct armband on for positive identification. Placed in gown. Call light 5 in reach. Warm blanket given. Pulse ox on. NIBP on. 10:04 COVID-19/FLU A+B (Document "Date of Onset" if Symptomatic) Sent. [facility] 10:30 CT Abd/Pelvis - IV Contrast Only In Process Unspecified. EDMS 12:59 IV discontinued, intact, bleeding controlled, No redness/swelling at site. Pressure iw dressing applied. 13:08 No provider procedures requiring assistance completed. iw Administered Medications: 09:54 Drug: NS 0.9% 1000 ml Route: IV; Rate: 1 bolus; Site: right antecubital; iw 11:20 Follow up: IV Status: Completed infusion iw 09:54 Drug: Acetaminophen 650 mg Route: PO; iw 11:45 Drug: Rocephin (cefTRIAXone) 2 grams Route: IV; Rate: calculated rate; Site: right iw antecubital; 11:50 Follow up: IV Status: Completed infusion iw Outcome: 12:32 Discharge ordered by . m 13:08 Discharged to home ambulatory. iw 13:08 Condition: good 13:08 Discharge instructions given to patient, Instructed on discharge instructions, follow up and referral plans. Demonstrated understanding of instructions, follow-up care, medications, Prescriptions given X 3. 13:10 Patient left the ED. iw Signatures: Dispatcher [employer] EDMS Tad Trevino PA PA jmm Martinez, Amelia as Sravanthi Jaffe, KINGS RN Georgina Berg [facility] Corrections: (The following items were deleted from the chart) 08:46 08:07 Chief complaint: EMS states: sudden onset back pain and burning with urination, iw took OTC test and was positive for UTI iw 08:47 08:45 Pulse 87bpm; Resp 16bpm; Pulse Ox 99% RA; Temp 98.5F; iw iw
[2022-02-14] MEDS ORDERED: ONDANSETRON 4 MG/2 ML VIAL ONE (12:58)
[2022-02-14 14:05] VITALS: BP 94/74; TEMP 98.5; O2SAT 99
== END 2022-02-14 13:10 | disposition home or self-care (01) ==
LOC: ER 08:02
DX: N12 Tubulo-interstitial nephritis, not specified as acute or chronic (principal); F31.9 Bipolar disorder, unspecified; Z88.5 Allergy status to narcotic agent
CPT/HCPCS: 0240U; 36415; 74177; 80053; 81003; 81025; 83690; 85025; 96361; 96374; 99284; J2405; J7030; Q9967

== ENCOUNTER 2022-10-10 23:42 | Emergency (ER) | payer SELFPAY ==
--- OUTSIDE RECORDS SUMMARY | 2022-10-10 23:46 | XMS REPORT | Continuity of Care Document ---
:1985 [address] [facility] t Address [address] [place] [address] [address] [place] [address] Care Team Providers Name Role Phone CAYDEN HAYES Attending Clinician Unavailable TERRY SCHUMACHER Attending Clinician Unavailable CAYDEN HAYES Admitting Clinician Unavailable TERRY SCHUMACHER Admitting Clinician Unavailable Problems This patient has [...] ofage hav e not been validated by th e MDRD study and should be i nterpretedwith caution.eGFR Re sult Interpretation: eGFR > or = 60 is in the Alyssa l RangeeGFR < 60 may mean kid kaylin diseaseeGFR < 1 5 may mean kidney failure* Ranges recommended by the National Kidney Foundation,http ://nkdep.nih.g ov [id number] 00:39:00 Test Item Value Reference Range Interpretation [...] code = THC) POSITIVE Negative A Urinalysis [id number] 00:29:00 Test Item Value Reference Range Interpretation Comments Color (test code = COLOR) Yellow Yellow,Straw,Pl N yellow Clarity (test code = Clear Clear N CLAR) Specific Tatums (test 1.026 1.001-1.035 N code = SPGR) [...] code = Few /HPF BACT) CBC with [id number] 23:55:00 Test Item Value Reference Range Interpretation [...] code = ALYMPH) 1.6 K/cumm 0.5-4.6 N Lincoln Abs (test code = AMONO) 0.8 K/cumm 0.0-1.2 N Eos Abs (test code = AEOS) 0.07 K/cumm 0.00-0.74 N Baso Abs (test code = ABASO) 0.0 K/cumm 0.00-0.21 N Comprehensive Metabolic [id number] 08:18:00 Test Item Value Reference Range Interpretation [...] into account, if the informationis provided. If e race is not provided , and [...] by the National Kidney Foundation,http ://nkd ep.nih.gov [id number] 08:18:00 Test Item Value Reference Range Interpretation Comments Lipase (test code = LIP) 29 U/L 13-60 N Urinalysis [id number] 07:51:00 Test Item Value Reference Range Interpretation Comments Color (test code = Yellow Yellow,Straw,Pl N COLOR) yellow Clarity (test code = Clear Clear N CLAR) Specific Tatums (test 1.024 1.001-1.035 N code = SPGR) [...] code Indicated = MEXAM) Epithelial Cells (test 20-29 /LPF 0-30 A code = EPI) WBC, Urine (test code = 0-5 /HPF 0-5 N UWBC) RBC, Urine (test code = 0-3 /HPF 0-5 A URBC) Bacteria (test code = Few /HPF BACT) BHCG, Serum, [id number] 07:20:00 Test Item Value Reference Range Interpretation Comments Preg Qual [Se] (test code = BSHCG) Negative Negative N CBC with [id number] 07:12:00 Test Item Value Reference Range Interpretation [...] code = ALYMPH) 1.6 K/cumm 0.5-4.6 N Lincoln Abs (test code = AMONO) 0.5 K/cumm 0.0-1.2 N Eos Abs (test code = AEOS) 0.08 K/cumm 0.00-0.74 N Baso Abs (test code = ABASO) 0.0 K/cumm 0.00-0.21 N
[2022-10-11] MEDS ORDERED: DIPHENHYDRAMINE 50 MG/ML VIAL ONE (02:01)
[2022-10-11] MEDS ORDERED: METOCLOPRAMIDE 10 MG/2mL INJ ONE (02:01)
[2022-10-11] MEDS ORDERED: NA CHLORIDE 0.9% 1,000 ML ONE (02:01)
[2022-10-11] MEDS ORDERED: KETOROLAC 30 MG/ML INJ ONE (02:01)
[2022-10-11 02:34] LABS: Urine Blood Negative (Negative); Urine Glucose Negative (Negative); Urine Protein Negative (Negative); Urine Specific Gravity 1.015 (1.005-1.030); Urine pH 5.5 (5.0-7.0)
[2022-10-11 02:46] LABS: Absolute Lymphocytes (CBC) 2.2 K/uL (0.7-4.9); Hematocrit 36.7 % (36.0-45.0); Lymphocytes % 23.5 % (15.3-44.8); MCV 88.5 fL (80-100); MPV 8.4 fL (7.6-11.3); RBC Red Blood Cell Count 4.14 M/uL (3.86-4.86)
[2022-10-11 02:59] LABS: Albumin 3.6 g/dL (3.4-5.0); Bilirubin Total 0.3 mg/dL (0.2-1.0); Potassium 3.9 mmol/L (3.5-5.1); Protein, Total 6.7 g/dL (6.4-8.2)
--- NOTE | 2022-10-11 03:02 | ER ---
Nurse's Notes [facility] Name: Madison Moreland Age: 36 yrs Sex: Female : 1985 Arrival Date: 10/10/2022 Time: 23:50 Bed 27 Private MD: Diagnosis: Headache;Migraine without aura, not intractable Presentation: 10/11 01:12 Chief complaint: Patient states: "For the last 5 days I have been having regular vc1 headaches, I am waking up out of my sleep with a horrible migraine. I take Excedrin migraine and get in a dark place and it goes away. Tonight it started at 9 and was way worse. The pain is always on my right side." EMS states: headace for 5 days. Coronavirus screen: Vaccine status: Patient reports receiving the 2nd dose of the covid vaccine. Pfizer headache, nausea, Client presents with at least one sign or symptom that may indicate coronavirus-19. Standard/surgical mask placed on the client. Provider contacted for isolation considerations. Ebola Screen: No symptoms or risks identified at this time. Risk Assessment: Do you want to hurt yourself or someone else? Patient reports no desire to harm self or others. Note Excedrin around 10pm. 01:12 Method Of Arrival: EMS: [facility] vc1 01:12 Acuity: DULCE 3 vc1 02:20 Initial Sepsis Screen: Does the patient meet any 2 criteria? No. Patient's initial bb sepsis screen is negative. Does the patient have a suspected source of infection? No. Patient's initial sepsis screen is negative. Onset of symptoms was September 2022. Triage Assessment: 01:18 Headache History: The patient has had previous headaches and this one is similar to vc1 previous episodes. General: Appears uncomfortable, Behavior is crying, fussy. Pain: Complains of pain in right temporal area Pain currently is 3 out of 10 on a pain scale. at worst was 10 out of 10 on a pain scale. Pain began suddenly, Also complains of nausea, photophobia, sleeplessness. EENT: No deficits noted. Neuro: Reports dizziness, headache photophobia. Cardiovascular: No deficits noted. Reports. Respiratory: Airway is patent Respiratory effort is even, unlabored, Respiratory pattern is regular, symmetrical. GI: No deficits noted. No signs and/or symptoms were reported involving the gastrointestinal system. : No deficits noted. No signs and/or symptoms were reported regarding the genitourinary system. Derm: No deficits noted. No signs and/or symptoms reported regarding the dermatologic system. Musculoskeletal: No deficits noted. No signs and/or symptoms reported regarding the musculoskeletal system. 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 - Social history:: Smoking status: Patient reports the use of cigarette tobacco products, smokes one pack cigarettes per day. - Family history:: not pertinent. Screenin:18 Abuse screen: Denies threats or abuse. Abuse screen: Denies threats or abuse. vc1 Nutritional screening: No deficits noted. Tuberculosis screening: No symptoms or risk factors identified. 02:20 [facility] ED Fall Risk Assessment (Adult) History of falling in the last 3 months, bb including since admission No falls in past 3 months (0 pts). Assessment: 02:20 General: Appears in no apparent distress. uncomfortable, Behavior is calm, cooperative. bb General: pt c/o migraine for several days. Pain: Complains of pain in head. Neuro: Level of Consciousness is awake, alert, obeys commands, Oriented to person, place, time, situation. Cardiovascular: Capillary refill < 3 seconds Patient's skin is warm and dry. Respiratory: Respiratory effort is even, unlabored, Respiratory pattern is regular. GI: No signs and/or symptoms were reported involving the gastrointestinal system. Derm: Skin is pink, warm \\T\\ dry. Musculoskeletal: Circulation, motion, and sensation intact. 03:09 Reassessment: pt sleeping, eyes closed, resp unlabored, family at bedside will await bb discharge until pt more awake. 04:47 Reassessment: Patient is alert, oriented x 3, equal unlabored respirations, skin bb warm/dry/pink. pt verbalized understanding of and agrees to plan of care discharge instructions given pt ambulated with steady gait to exit accompanied by family. Vital Signs: 01:12 Weight 72.57 kg; Height 5 ft. 6 in. (167.64 cm); Pain 3/10; vc1 01:22 BP 97 / 67; Pulse 68; Resp 18; Temp 98.8; Pulse Ox 100% ; vc1 04:48 BP 116 / 71; Pulse 51; Resp 16 S; Temp 98(O); Pulse Ox 100% on R/A; bb 01:12 Body Mass Index 25.82 (72.57 kg, 167.64 cm) vc1 Georgina Coma Score: 01:43 Eye Response: spontaneous(4). Verbal Response: oriented(5). Motor Response: obeys migue commands(6). Total: 15. NIH Stroke Scale Scores: 01:40 NIHSS Score: 0 [facility] ED Course: 10/10 23:50 Patient arrived in ED. [id number] 03 00:33 Lewis Carpenter MD is Attending Physician. migue 01:07 CT Head Brain wo Cont In Process Unspecified. EDMS 01:16 Triage completed. vc1 01:17 Arm band placed on left wrist. vc1 02:20 Patient has correct armband on for positive identification. Bed in low position. Call bb light in reach. Side rails up X 1. Adult w/ patient. Door closed. Noise minimized. Lights dimmed. Warm blanket given. Pillow given. 02:20 Initial lab(s) drawn, by me, sent to lab. Urine collected: clean catch specimen, clear. bb Inserted saline lock: 20 gauge in right forearm, using aseptic technique. Blood collected. 02:59 Brianna Snow, KINGS is Primary Nurse. bb 03:00 Jose Whitman MD is Referral Physician. migue 03:10 No provider procedures requiring assistance completed. bb 04:49 IV discontinued, intact, bleeding controlled, No redness/swelling at site. Pressure bb dressing applied. Administered Medications: 02:23 Drug: NS 0.9% 1000 ml Route: IV; Rate: 1 bolus; Site: right forearm; bb 03:11 Follow up: IV Status: Completed infusion; IV Intake: 950ml bb 02:25 Drug: Reglan (metoCLOPramide) 10 mg Route: IVP; Site: right forearm; bb 03:11 Follow up: Response: Marked relief of symptoms bb 02:26 Drug: Ketorolac 30 mg Route: IVP; Site: right forearm; bb 03:11 Follow up: Response: Marked relief of symptoms bb 02:29 Drug: Benadryl (diphenhydrAMINE) 50 mg Route: IVP; Site: right forearm; bb 03:11 Follow up: Response: Marked relief of symptoms bb Medication: 02:20 VIS not applicable for this client. bb Intake: 03:11 IV: 950ml; Total: 950ml. bb Outcome: 03:00 Discharge ordered by . migue 04:48 Discharged to home ambulatory, with family. bb 04:48 Condition: stable 04:48 Discharge instructions given to patient, Instructed on discharge instructions, follow up and referral plans. medication usage, Demonstrated understanding of instructions, follow-up care, medications, Prescriptions given X 2. 04:49 Patient left the ED. bb NIH Stroke Scale - NIH Stroke Score Date: 10/11/2022 Time: 01:40 Total Score = 0 1a. Level of Consciousness (LOC) - 0(Alert) 1b. Level of Consciousness (LOC) (Month \\T\\ Age) - 0(Both) 1c. LOC Commands (Open \\T\\ Closes Eyes/Athletics Teacher) - 0(Both) 2. Best Gaze (Lateral Gaze Paresis) - 0(Normal) 3. Visual Field Loss - 0(No visual loss) 4. Facial Palsy - 0(Normal) 5a. Left Arm: Motor (10-second hold) - 0(No drift) 5b. Right Arm: Motor (10-second hold) - 0(No drift) 6a. Left Leg: Motor (5-second hold - always test supine) - 0(No drift) 6b. Right Leg: Motor (5-second hold - always test supine) - 0(No drift) 7. Limb Ataxia (finger/nose \\T\\ heel/barkley - test with eyes open) - 0(Absent) 8. Sensory Loss (pinprick arms/legs/face) - 0(Normal) 9. Best Language: Aphasia (description/naming/reading) - 0(No aphasia) 10. Dysarthria (speech clarity - read or repeat words) - 0(Normal) 11. Extinction and Inattention (visual/tactile/auditory/spatial/personal) - 0(No abnormality) Initials: [facility] Signatures: Dispatcher [employer] EDLewis Servin MD MD cha Ballard, Brenda, RN RN Miesha [id number] Emeliote, Alana, KINGS RN vc1
--- NOTE | 2022-10-11 03:02 | EDPHYS ---
Physician Documentation [facility] Name: Madison Moreland Age: 36 yrs Sex: Female : 1985 Arrival Date: 10/10/2022 Time: 23:50 Bed 27 Private MD: AL Physician Lewis Carpenter HPI: 10/11 01:40 This 36 yrs old Female presents to ER via EMS with complaints of Headache. migue 01:40 The patient complains of pain to the top of head, forehead, left frontal area, left migue side of the back of head, left occipital area and left base of the skull. The patient describes the headache as aching. Onset: The symptoms/episode began/occurred 3 day(s) ago. Associated signs and symptoms: Pertinent positives: Photophobia vomiting. Severity of symptoms: At its worst the pain was moderate, in the emergency department the pain is unchanged. Headache History: The patient has had previous headaches and this one is similar to previous episodes, and this one is more severe than previous episodes. The symptoms are alleviated by Darkened room, quiet, remaining still. The patient has experienced similar episodes in the past, multiple times. 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 - Social history:: Smoking status: Patient reports the use of cigarette tobacco products, smokes one pack cigarettes per day. - Family history:: not pertinent. ROS: 01:40 Constitutional: Negative for fever, chills, and weight loss, Eyes: Negative for injury, migue pain, redness, and discharge, ENT: Negative for injury, pain, and discharge, Neck: Negative for injury, pain, and swelling, Cardiovascular: Negative for chest pain, palpitations, and edema, Respiratory: Negative for shortness of breath, cough, wheezing, and pleuritic chest pain, Abdomen/GI: Negative for abdominal pain, nausea, vomiting, diarrhea, and constipation, Back: Negative for injury and pain, : Negative for injury, bleeding, discharge, and swelling, MS/Extremity: Negative for injury and deformity, Skin: Negative for injury, rash, and discoloration, Psych: Negative for depression, anxiety, suicide ideation, homicidal ideation, and hallucinations, Allergy/Immunology: Negative for hives, rash, and allergies, Endocrine: Negative for neck swelling, polydipsia, polyuria, polyphagia, and marked weight changes, Hematologic/Lymphatic: Negative for swollen nodes, abnormal bleeding, and unusual bruising. 01:40 Neuro: Positive for headache. Exam: 01:40 Constitutional: This is a well developed, well nourished patient who is awake, alert, migue and in no acute distress. Head/Face: Normocephalic, atraumatic. Eyes: Pupils equal round and reactive to light, extra-ocular motions intact. Lids and lashes normal. Conjunctiva and sclera are non-icteric and not injected. Cornea within normal limits. Periorbital areas with no swelling, redness, or edema. ENT: Nares patent. No nasal discharge, no septal abnormalities noted. Tympanic membranes are normal and external auditory canals are clear. Oropharynx with no redness, swelling, or masses, exudates, or evidence of obstruction, uvula midline. Mucous membranes moist. Neck: Trachea midline, no thyromegaly or masses palpated, and no cervical lymphadenopathy. Supple, full range of motion without nuchal rigidity, or vertebral point tenderness. No Meningismus. Chest/axilla: Normal chest wall appearance and motion. Nontender with no deformity. No lesions are appreciated. Cardiovascular: Regular rate and rhythm with a normal S1 and S2. No gallops, murmurs, or rubs. Normal PMI, no JVD. No pulse deficits. Respiratory: Lungs have equal breath sounds bilaterally, clear to auscultation and percussion. No rales, rhonchi or wheezes noted. No increased work of breathing, no retractions or nasal flaring. Abdomen/GI: Soft, non-tender, with normal bowel sounds. No distension or tympany. No guarding or rebound. No evidence of tenderness throughout. Back: No spinal tenderness. No costovertebral tenderness. Full range of motion. Skin: Warm, dry with normal turgor. Normal color with no rashes, no lesions, and no evidence of cellulitis. MS/ Extremity: Pulses equal, no cyanosis. Neurovascular intact. Full, normal range of motion. Neuro: Awake and alert, GCS 15, oriented to person, place, time, and situation. Cranial nerves II-XII grossly intact. Motor strength 5/5 in all extremities. Sensory grossly intact. Cerebellar exam normal. Normal gait. Psych: Awake, alert, with orientation to person, place and time. Behavior, mood, and affect are within normal limits. Vital Signs: 01:12 Weight 72.57 kg; Height 5 ft. 6 in. (167.64 cm); Pain 3/10; vc1 01:22 BP 97 / 67; Pulse 68; Resp 18; Temp 98.8; Pulse Ox 100% ; vc1 04:48 BP 116 / 71; Pulse 51; Resp 16 S; Temp 98(O); Pulse Ox 100% on R/A; bb 01:12 Body Mass Index 25.82 (72.57 kg, 167.64 cm) vc1 NIH Stroke Scale Scores: 01:40 NIHSS Score: 0 migue Georgina Coma Score: 01:43 Eye Response: spontaneous(4). Verbal Response: oriented(5). Motor Response: obeys migue commands(6). Total: 15. MDM: 00:33 Patient medically screened. migue 01:43 Differential diagnosis: cluster headache, migraine, temporal arteritis, tension migue headache, trigeminal neuralgia, vasomotor headache. Data reviewed: vital signs, nurses notes, lab test result(s), radiologic studies, CT scan. Data interpreted: traffic monitor specialist: rate is 68 beats/min, rhythm is normal sinus rhythm, regular, Pulse oximetry: on room air is 100 %. Test interpretation: by ED physician or midlevel provider:. Counseling: I had a detailed discussion with the patient and/or guardian regarding: the historical points, exam findings, and any diagnostic results supporting the discharge/admit diagnosis, lab results, radiology results, the need for outpatient follow up, for definitive care, a family practitioner, a neurologist. 10/11 00:39 Order name: CBC with Diff; Complete Time: 03:00 [facility] 10/11 00:39 Order name: Comprehensive Metabolic Panel; Complete Time: 03:00 [facility] 10/11 00:39 Order name: CT Head Brain wo Cont [facility] 10/11 00:39 Order name: UDS [facility] 10/11 02:34 Order name: Urine Dipstick-Ancillary; Complete Time: 02:49 [facility] 10/11 00:39 Order name: Urine Dipstick-Ancillary (obtain specimen); Complete Time: 02:55 migue 10/11 00:39 Order name: Oxygen: 2 liters; Complete Time: 02:55 migue Administered Medications: 02:23 Drug: NS 0.9% 1000 ml Route: IV; Rate: 1 bolus; Site: right forearm; bb 03:11 Follow up: IV Status: Completed infusion; IV Intake: 950ml bb 02:25 Drug: Reglan (metoCLOPramide) 10 mg Route: IVP; Site: right forearm; bb 03:11 Follow up: Response: Marked relief of symptoms bb 02:26 Drug: Ketorolac 30 mg Route: IVP; Site: right forearm; bb 03:11 Follow up: Response: Marked relief of symptoms bb 02:29 Drug: Benadryl (diphenhydrAMINE) 50 mg Route: IVP; Site: right forearm; bb 03:11 Follow up: Response: Marked relief of symptoms bb Disposition Summary: 10/11/22 03:00 Discharge Ordered Location: Home migue Problem: new migue Symptoms: have improved migue Condition: Stable migue Diagnosis - Headache migue - Migraine without aura, not intractable migue Followup: migue - With: Private Physician - When: 2 - 3 days - Reason: Recheck today's complaints, Continuance of care, Re-evaluation by your physician Followup: migue - With: - When: 2 - 3 days - Reason: Recheck today's complaints, Continuance of care, Re-evaluation by your physician Discharge Instructions: - Discharge Summary Sheet migue - General Headache Without Cause migue - Migraine Headache migue - Migraine Headache, [id number] migue - General Headache Without Cause, [id number] migue Forms: - Medication Reconciliation Form migue - Thank You Letter migue - Antibiotic Education migue - Prescription Opioid Use migue - Work release form bb Prescriptions: - Ibuprofen 600 mg Oral Tablet - take 1 tablet by ORAL route every 6 hours As needed take with food; 30 tablet; migue Refills: 0, Product Selection Permitted - Zofran 4 mg Oral Tablet - take 1 tablet by ORAL route every 12 hours As needed; 20 tablet; Refills: 0, migue Product Selection Permitted NIH Stroke Scale - NIH Stroke Score Date: 10/11/2022 Time: 01:40 Total Score = 0 1a. Level of Consciousness (LOC) - 0(Alert) 1b. Level of Consciousness (LOC) (Month \T\ Age) - 0(Both) 1c. LOC Commands (Open \T\ Closes Eyes/Transliterator) - 0(Both) 2. Best Gaze (Lateral Gaze Paresis) - 0(Normal) 3. Visual Field Loss - 0(No visual loss) 4. Facial Palsy - 0(Normal) 5a. Left Arm: Motor (10-second hold) - 0(No drift) 5b. Right Arm: Motor (10-second hold) - 0(No drift) 6a. Left Leg: Motor (5-second hold - always test supine) - 0(No drift) 6b. Right Leg: Motor (5-second hold - always test supine) - 0(No drift) 7. Limb Ataxia (finger/nose \T\ heel/barkley - test with eyes open) - 0(Absent) 8. Sensory Loss (pinprick arms/legs/face) - 0(Normal) 9. Best Language: Aphasia (description/naming/reading) - 0(No aphasia) 10. Dysarthria (speech clarity - read or repeat words) - 0(Normal) 11. Extinction and Inattention (visual/tactile/auditory/spatial/personal) - 0(No abnormality) Initials: migue Signatures: Dispatcher [employer] EDLewis Servin MD MD cha Ballard, Brenda, RN RN bb Alana Arrington RN RN vc1 Corrections: (The following items were deleted from the chart) 02:55 00:39 Urine Test ordered. migue rizvi
[2022-10-11 03:22] LABS: Barbiturates NEGATIVE (NEGATIVE); Benzodiazepines NEGATIVE (NEGATIVE); Cocaine NEGATIVE (NEGATIVE); METHAMPHETAM NEGATIVE (NEGATIVE); Methadone NEGATIVE (NEGATIVE); Opiates NEGATIVE (NEGATIVE); Phencyclidine NEGATIVE (NEGATIVE); THC Cannibis POSITIVE (NEGATIVE)
[2022-10-11 05:15] VITALS: O2SAT 100
[2022-10-11 05:25] VITALS: BP 116/71; TEMP 98
--- NOTE | 2022-10-11 13:34 | RAD REPORT ---
EXAM DESCRIPTION: CT - Head Brain Wo Cont - 10/11/2022 6:43 am CLINICAL HISTORY: 36 years, Female, Headache, classic migraine COMPARISON: 02/23/2021 FINDINGS: Multiple transaxial tomograms of the brain were obtained from the base of the skull to the vertex without contrast. 2-D multiplanar reformats and the coronal and sagittal plane were performed and reviewed. This exam was performed according to our departmental dose-optimization protocol, which includes auto mated exposure control, adjustment of the mA and/or kV according to patient size and/or use of iterat shmaar reconstruction technique. Brain parenchyma as well as the panchal and white matter differentiation demonstrate to be unremarkable. There is no midline shift and/or mass effect. There is no evidence for acute hemorrhage. No focal ar eas of hypodensities. Lateral ventricles and cisterns displace normal appearance. No intra or ext ra axial fluid collections were seen. The calvarium is intact with no evidence for fracture. The visu alized portions of the paranasal sinuses and orbits demonstrate to be clear. IMPRESSION: No acute intracranial hemorrhage identified. Unremarkable CT scan of the head without contrast. No significant interval change. Electronically signed by: Hiren Rucker MD 10/11/2022 1:19 AM SPORTS MEDICINE PHYSICIAN Due to temporary technical issues with the PACS/Fluency reporting system, reports are being signed by the in house radiologists without review as a courtesy to insure prompt reporting. The interpreting radiologist is fully responsible for the content of the report.
== END 2022-10-11 04:49 | disposition home or self-care (01) ==
LOC: ER 23:42
DX: G43.009 Migraine without aura, not intractable, without status migrainosus (principal); F17.210 Nicotine dependence, cigarettes, uncomplicated
CPT/HCPCS: 36415; 70450; 80053; 80307; 81003; 85025; 96361; 96374; 96375; 99284; J1200; J2765; J7030

== ENCOUNTER 2024-12-04 00:49 | Emergency (ER) | payer BC ==
[2024-12-04] MEDS ORDERED: METOCLOPRAMIDE 10 MG/2mL INJ ONE (01:26)
[2024-12-04] MEDS ORDERED: KETOROLAC 30 MG/ML INJ ONE (01:26)
[2024-12-04] MEDS ORDERED: DIPHENHYDRAMINE 50 MG/ML VIAL ONE (01:26)
[2024-12-04] MEDS ORDERED: NA CHLORIDE 0.9% 500 ML ONE (01:26)
[2024-12-04 01:33] LABS: Specific Gravity 1.027 (1.005-1.030); Urine Bacteria None Seen /HPF (<20); Urine Bilirubin NEGATIVE (Negative); Urine Blood Negative (Negative); Urine Clarity Extremely Turbid (Clear); Urine Color Light-Yellow (Yellow); Urine Culture Reflex Order NOT NEEDED; Urine Glucose NEGATIVE (Negative); Urine Ketones NEGATIVE (Negative); Urine Micro Reflex YN NO BILL MICROSCOPIC; Urine Mucus Slight /HPF (None Seen); Urine Nitrite NEGATIVE (Negative); Urine Protein NEGATIVE (Negative); Urine RBC None Seen /HPF (None Seen); Urine Urobilinogen Normal (Normal); Urine WBC None Seen /HPF (<5); Urine pH 5.5 (5.0-7.0)
[2024-12-04 01:43] LABS: Absolute Eosinophils 0.1 K/uL (0-0.5); Absolute Lymphocytes (CBC) 2.4 K/uL (0.7-4.9); Absolute Monocytes 0.7 K/uL (0.1-1.3); Absolute Neutrophil 3.9 K/uL (1.8-8.0); Basophils % 0.3 % (0-1.3); Eosinophils % 0.8 % (0-4.4); Hematocrit 41.1 % (36.0-45.0); Hemoglobin 13.9 g/dL (12.0-15.0); Lymphocytes % 33.4 % (15.3-44.8); MCH 30.4 pg (27.0-35.0); MCHC 33.8 g/dL (32.0-36.0); MCV 89.9 fL (80-100); Monocytes % 9.7 % (3.3-12.3); Neutrophils % 55.8 % (41.7-73.7); Platelets 277 thou/uL (152-406); RBC Red Blood Cell Count 4.58 M/uL (3.86-4.86); Red Cell Distribution Width 13.9 % (12.1-15.2)
[2024-12-04 01:49] LABS: Anion Gap 7.8 mEq/L (5.0-15.0); Potassium 3.8 mEq/L (3.5-5.1)
--- NOTE | 2024-12-04 03:10 | RAD REPORT ---
CLINICAL HISTORY: L flank pain. COMPARISON: CT Abdomen Pelvis 02/14/2022. TECHNIQUE: CT ABDOMEN PELVIS WITHOUT IV CONTRAST on 12/04/2024 1:11 AM LADDER OPERATOR This exam was performed according to our departmental dose-optimization program, which includes autom ated exposure control, adjustment of the mA and/or kV according to patient size and/or use of iterative reconstruction technique. FINDINGS: Lower lungs are clear. Abdomen: The liver is normal in appearance. There is no biliary dilatation. Gallbladder is decompress ed. The pancreas and spleen are normal in appearance. The adrenal glands and kidneys are unremarkable. Abdominal aorta is normal in course and caliber without aneurysm. There is no free air. There is no r etroperitoneal adenopathy. Pelvis: There is no bowel obstruction. Urinary bladder is unremarkable. There is no free fluid. Uteru s is normal in size. Appendix is normal. Skeleton: There are no acute osseous findings. No suspicious bony lesions. IMPRESSION: No acute process. Electronically signed by: Efra Garcia MD 12/04/2024 03:06 AM LADDER OPERATOR Due to temporary technical issues with the PACS/Applifier reporting system, reports are being alba d by the in-house radiologist without review as a courtesy to ensure prompt reporting the interpreting radiologist is fully responsible for the content of the report. Transcribed Date/Time: 12/04/2024 3:09 AM
--- NOTE | 2024-12-04 03:12 | EDPHYS ---
Physician Documentation [facility] Name: Madison Moreland Age: 39 yrs Sex: Female : 1985 Arrival Date: 12/04/2024 Time: 00:49 Bed 5 Private MD: ED Physician Biran Walker HPI: 12/04 01:11 This 39 yrs old Female presents to ER via Unassigned with complaints of Low ec2 Back Pain. 01:11 Patient arrives today with left-sided flank pain rating to the left buttock. No falls ec2 injuries or trauma. Patient reports history of urinary tract infection, kidney infection, states that she is having similar symptoms today. Denies any dysuria or urinary frequency. Denies any abdominal pain, no nausea or vomiting.. 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 - Infectious Disease History:: Denies. - Social history:: Smoking status: Patient reports the use of cigarette tobacco products, smokes one pack cigarettes per day. ROS: 01:12 Constitutional: as per hpi ec2 Exam: 01:12 Constitutional: GEN: NAD Head: atraumatic Eyes: EOMI Ears: External ears are ec2 normal. CV: regular rate LUNGS: no respiratory distress ABD: non-distended, soft, nontender, no guarding, not rigid SKIN: no evidence of rashes MSK: no evidence of trauma, left paraspinal TTP without deformities or crepitus appreciated. No C/T/L spine deformities Vital Signs: 01:13 BP 117 / 69; Pulse 79; Resp 16; Temp 98.5; Pulse Ox 97% ; Weight 74.84 kg; Height 5 ft. vc1 6 in. ; Pain 8/10; 02:39 BP 117 / 55; Pulse 57; Resp 16 S; Pulse Ox 98% on R/A; lg3 01:13 Body Mass Index 26.63 (74.84 kg, 167.64 cm) vc1 01:13 Pain Scale: Adult vc1 MDM: 00:55 Medical Screening Exam initiated ec2 01:12 Data reviewed: vital signs, nurses notes. ED course: Patient arrives today for left ec2 sided flank pain. Examination as above. Will obtain lab work, urine studies, CT imaging. DDx include processes such as ureteral stone, UTI, sciatica.. 03:11 ED course: On reassessment patient with marked improvement in symptoms. Will discharge ec2 home. Return precautions given. Suspect MSK pain, CT imaging negative.. 12/04 01:11 Order name: CBC with Diff; Complete Time: 02:03 ec2 12/04 01:11 Order name: BMP; Complete Time: 01:51 ec2 12/04 01:11 Order name: UAM; Complete Time: 01:45 ec2 12/04 01:11 Order name: Test, Urine; Complete Time: 01:45 ec2 12/04 01:11 Order name: CT Abd/Pelvis - Without Contrast; Complete Time: 03:11 ec2 12/04 01:11 Order name: IV; Complete Time: 01:23 ec2 Administered Medications: 01:32 Drug: Ketorolac IVP 15 mg IVP once Route: IVP; Site: right antecubital; lg3 03:17 Follow up: Response: No adverse reaction; Marked relief of symptoms lg3 01:32 Drug: metoCLOPramide IVP 10 mg IVP once; over 1 to 2 minutes Route: IVP; Site: right lg3 antecubital; 03:17 Follow up: Response: No adverse reaction; Marked relief of symptoms lg3 01:32 Drug: diphenhydrAMINE IVP 25 mg IVP once Route: IVP; Site: right antecubital; lg3 03:17 Follow up: Response: No adverse reaction; Marked relief of symptoms lg3 01:33 Drug: NS 0.9% IV 500 ml 500 ml IV at 1 bolus once; to be given as a bolus over 30 lg3 minutes Volume: 500 ml; Route: IV; Rate: 1 bolus; Site: right antecubital; 02:10 Follow up: Response: No adverse reaction; IV Status: Completed infusion; IV Intake: lg3 500ml Disposition Summary: 12/04/24 03:11 Discharge Ordered Notes: Location: Home ec2 Condition: Stable ec2 Diagnosis - Sciatica ec2 Followup: ec2 - With: Private Physician - When: - Reason: Re-evaluation by your physician Discharge Instructions: - Discharge Summary Sheet ec2 - Sciatica, [id number] ec2 Forms: - Work release form vc1 - Medication Reconciliation Form ec2 - Antibiotic Education ec2 - Prescription Opioid Use ec2 - Patient Portal Instructions ec2 - Leadership Thank You Letter ec2 Prescriptions: - methocarbamol 500 mg Oral tablet - take 2 tablets ORAL route 4 times per day; 30 tablet; Refills: 0, Product ec2 Selection Permitted Signatures: Dispatcher [employer] Kimi Power RN RN lg3 Alana Arrington RN RN vc1 Brian Walker MD MD ec2
--- NOTE | 2024-12-04 03:12 | ER ---
Nurse's Notes [facility] Name: Madison Moreland Age: 39 yrs Sex: Female : 1985 Arrival Date: 12/04/2024 Time: 00:49 Bed 5 Private MD: Diagnosis: Sciatica Presentation: 12/04 01:13 Chief complaint: Patient states: "feels like a kidney infection", pain to left lower vc1 back radiates down buttock to right lower back. Coronavirus screen: Client denies travel out of the [place] in the last 14 days. At this time, the client does not indicate any symptoms associated with coronavirus-19. Ebola Screen: Patient negative for fever greater than or equal to 101.5 degrees Fahrenheit, and additional compatible Ebola Virus Disease symptoms Patient denies exposure to infectious person. Patient denies travel to an Ebola-affected area in the 21 days before illness onset. No symptoms or risks identified at this time. Initial Sepsis Screen: Does the patient meet any 2 criteria? No. Patient's initial sepsis screen is negative. Does the patient have a suspected source of infection? No. Patient's initial sepsis screen is negative. Risk Assessment: Do you want to hurt yourself or someone else? Patient reports no desire to harm self or others. Onset of symptoms was December 01, 2024. Care prior to arrival: None. Activity prior to arrival: None. 01:13 Method Of Arrival: Ambulatory vc1 01:13 Acuity: DULCE 3 vc1 Triage Assessment: 01:20 General: Appears in no apparent distress. uncomfortable, Behavior is calm, cooperative, vc1 appropriate for age. Pain: Complains of pain in left low back Pain radiates to right low back Pain currently is 8 out of 10 on a pain scale. Quality of pain is described as sharp, Pain began 2-3 days ago. Is continuous, Also complains of nausea. EENT: No deficits noted. No signs and/or symptoms were reported regarding the EENT system. Neuro: Level of Consciousness is awake, alert, obeys commands, Oriented to person, place, time, situation, Appropriate for age. Cardiovascular: Capillary refill < 3 seconds Patient's skin is warm and dry. Respiratory: Airway is patent Respiratory effort is even, unlabored, Respiratory pattern is regular, symmetrical. GI: No deficits noted. No signs and/or symptoms were reported involving the gastrointestinal system. : Reports inability to void, pain in left in lower back Pain is 8 out of 10 on a pain scale. Derm: Skin is intact, is healthy with good turgor, Skin is dry, Skin is normal, Skin temperature is warm. Musculoskeletal: Circulation, motion, and sensation intact. Range of motion: intact in all extremities. 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 - Infectious Disease History:: Denies. - Social history:: Smoking status: Patient reports the use of cigarette tobacco products, smokes one pack cigarettes per day. Screenin:18 [facility] ED Fall Risk Assessment (Adult) History of falling in the last 3 months, vc1 including since admission No falls in past 3 months (0 pts) Confusion or Disorientation No (0 pts) Intoxicated or Sedated No (0 pts) Impaired Gait No (0 pts) Mobility Assist Device Used No (0 pt) Altered Elimination No (0 pt) Score/Fall Risk Level 0 - 2 = Low Risk Oriented to surroundings, Maintained a safe environment, Educated pt \\T\\ family on fall prevention, incl call for assistance when getting out of bed. Abuse screen: Denies threats or abuse. Nutritional screening: No deficits noted. Tuberculosis screening: No symptoms or risk factors identified. Assessment: 01:21 General: Appears in no apparent distress. uncomfortable, Behavior is calm, cooperative. lg3 Pain: Complains of pain in left low back. Neuro: No deficits noted. [place] Agitation-Sedation Scale (RASS): 0 - Alert and Calm Level of Consciousness is awake, alert, obeys commands, Oriented to person, place, time, situation. Cardiovascular: No deficits noted. Denies chest pain, shortness of breath, Capillary refill < 3 seconds Clubbing of nail beds is absent JVD is absent Patient's skin is warm and dry. Respiratory: No deficits noted. Airway is patent Respiratory effort is even, unlabored, Respiratory pattern is regular, symmetrical. GI: No deficits noted. No signs and/or symptoms were reported involving the gastrointestinal system. Abdomen is flat, non-distended. : No deficits noted. No signs and/or symptoms were reported regarding the genitourinary system. Urine is clear. EENT: No deficits noted. No signs and/or symptoms were reported regarding the EENT system. Derm: No deficits noted. No signs and/or symptoms reported regarding the dermatologic system. Skin is intact, is healthy with good turgor, Skin is dry, Skin is normal, Skin temperature is warm. Musculoskeletal: Reports pain in left low back. 02:39 Reassessment: Patient appears in no apparent distress at this time. No changes from lg3 previously documented assessment. Patient and/or family updated on plan of care and expected duration. Pain level reassessed. Patient is alert, oriented x 3, equal unlabored respirations, skin warm/dry/pink. Vital Signs: 01:13 BP 117 / 69; Pulse 79; Resp 16; Temp 98.5; Pulse Ox 97% ; Weight 74.84 kg; Height 5 ft. vc1 6 in. ; Pain 8/10; 02:39 BP 117 / 55; Pulse 57; Resp 16 S; Pulse Ox 98% on R/A; lg3 01:13 Body Mass Index 26.63 (74.84 kg, 167.64 cm) vc1 01:13 Pain Scale: Adult vc1 ED Course: 00:53 Patient arrived in ED. gm2 00:54 Brian Walker MD is Attending Physician. ec2 01:15 Triage completed. vc1 01:17 Arm band placed on right wrist. vc1 01:18 Radiology exam delayed due to test not completed at this time. nj 01:20 Kimi Cervantes, KINGS is Primary Nurse. lg3 01:20 Patient has correct armband on for positive identification. Bed in low position. Call vc1 light in reach. Pulse ox on. NIBP on. 01:21 Door closed. Noise minimized. Warm blanket given. Pillow given. lg3 01:21 Initial lab(s) drawn, by me, sent to lab. Urine collected: clean catch specimen, clear. lg3 Inserted saline lock: 20 gauge in right antecubital area, using aseptic technique. Blood collected. Flushed with 10 mL NS. 01:23 Test, Urine Sent. lg3 01:23 UAM Sent. lg3 01:23 BMP Sent. lg3 01:23 CBC with Diff Sent. lg3 01:27 Test, Urine Sent. vk 01:27 UAM Sent. vk 01:27 BMP Sent. vk 01:27 CBC with Diff Sent. vk 01:51 CT Abd/Pelvis - Without Contrast In Process Unspecified. EDMS 03:17 No provider procedures requiring assistance completed. IV discontinued, intact, lg3 bleeding controlled, No redness/swelling at site. Pressure dressing applied. Administered Medications: 01:32 Drug: Ketorolac IVP 15 mg IVP once Route: IVP; Site: right antecubital; lg3 03:17 Follow up: Response: No adverse reaction; Marked relief of symptoms lg3 01:32 Drug: metoCLOPramide IVP 10 mg IVP once; over 1 to 2 minutes Route: IVP; Site: right lg3 antecubital; 03:17 Follow up: Response: No adverse reaction; Marked relief of symptoms lg3 01:32 Drug: diphenhydrAMINE IVP 25 mg IVP once Route: IVP; Site: right antecubital; lg3 03:17 Follow up: Response: No adverse reaction; Marked relief of symptoms lg3 01:33 Drug: NS 0.9% IV 500 ml 500 ml IV at 1 bolus once; to be given as a bolus over 30 lg3 minutes Volume: 500 ml; Route: IV; Rate: 1 bolus; Site: right antecubital; 02:10 Follow up: Response: No adverse reaction; IV Status: Completed infusion; IV Intake: lg3 500ml Medication: 01:19 VIS not applicable for this client. vc1 Intake: 02:10 IV: 500ml; Total: 500ml. lg3 Outcome: 03:11 Discharge ordered by . ec2 03:17 Discharged to home ambulatory, lg3 03:17 Condition: stable 03:17 Discharge instructions given to patient, Instructed on discharge instructions, follow up and referral plans. medication usage, Demonstrated understanding of instructions, follow-up care, medications, Prescriptions given X 1, 03:18 Patient left the ED. lg3 Signatures: Dispatcher [employer] EDMS Inez Apodacahan nj Able, Kimi, RN RN lg3 Alana Arrington RN RN vc1 Brian Walker MD MD ec2 Violeta Bowden gm2 Imani Guerrero
[2024-12-04 03:23] VITALS: TEMP 98.5
[2024-12-04 03:24] VITALS: BP 117/55; O2SAT 98
== END 2024-12-04 03:18 | disposition home or self-care (01) ==
LOC: ER 00:49
DX: M54.32 Sciatica, left side (principal); F17.210 Nicotine dependence, cigarettes, uncomplicated
CPT/HCPCS: 85025; 81001; 80048; 36415; 81025; 74176; J2765; J1200; J7040; 96361; 96374; 96375; 99284

== ENCOUNTER 2024-12-11 13:53 | Emergency (ER) | payer BC ==
[2024-12-11 15:29] LABS: Absolute Lymphocytes (CBC) 1.7 K/uL (0.7-4.9); Absolute Monocytes 0.4 K/uL (0.1-1.3); Absolute Neutrophil 5.1 K/uL (1.8-8.0); Basophils % 0.5 % (0-1.3); Eosinophils % 0.6 % (0-4.4); Hematocrit 42.1 % (36.0-45.0); Hemoglobin 14.6 g/dL (12.0-15.0); Lymphocytes % 23.8 % (15.3-44.8); MCH 30.7 pg (27.0-35.0); MCHC 34.6 g/dL (32.0-36.0); MCV 88.5 fL (80-100); MPV 8.4 fL (7.6-11.3); Monocytes % 5.6 % (3.3-12.3); Neutrophils % 69.5 % (41.7-73.7); Nucleated Red Blood Cells % 0.5 % (0-0); Platelets 315 thou/uL (152-406); RBC Red Blood Cell Count 4.75 M/uL (3.86-4.86); Red Cell Distribution Width 13.8 % (12.1-15.2)
[2024-12-11 15:43] LABS: Albumin 3.8 g/dL (3.4-5.0); Anion Gap 8.7 mEq/L (5.0-15.0); Bilirubin Total 0.2 mg/dL (0.2-1.0); Globulin 3.9 g/dL (2.3-3.5); Potassium 3.7 mEq/L (3.5-5.1); Protein, Total 7.7 g/dL (6.4-8.2)
[2024-12-11] MEDS ORDERED: NA CHLORIDE 0.9% 500 ML ONE (17:02)
[2024-12-11] MEDS ORDERED: KETOROLAC 30 MG/ML INJ ONE (17:02)
[2024-12-11] MEDS ORDERED: FENTANYL CITR 100 MCG/2 ML ONE (18:06)
[2024-12-11 19:26] LABS: Specific Gravity > 1.030 (1.005-1.030)
[2024-12-11 19:27] LABS: Specific Gravity > 1.030 (1.005-1.030); Sqamous Epithelial <5 /HPF (None Seen); Urine Bacteria <20 /HPF (<20); Urine Bilirubin NEGATIVE (Negative); Urine Blood 3+ (Negative); Urine Clarity Turbid (Clear); Urine Color Yellow (Yellow); Urine Culture Reflex Order NOT NEEDED; Urine Glucose NEGATIVE (Negative); Urine Ketones NEGATIVE (Negative); Urine Microscopic Reflex YN ORDER UMIC; Urine Mucus 3+ /HPF (None Seen); Urine Nitrite NEGATIVE (Negative); Urine Protein 1+ (Negative); Urine RBC <5 /HPF (None Seen); Urine Urobilinogen 1+ (Normal); Urine WBC <5 /HPF (<5); Urine pH 5.5 (5.0-7.0)
--- NOTE | 2024-12-11 19:32 | ER ---
Nurse's Notes [facility] Name: Madison Moreland Age: 39 yrs Sex: Female : 1985 Arrival Date: 12/11/2024 Time: 13:53 Bed DX1 Private MD: Diagnosis: Low back pain Presentation: 12/11 14:30 Chief complaint: Patient states: Low back pain onset last week. Pt states that the pain cm10 initially started on the left side and now it hurts on her right side and radiates to her buttocks. pt describes the pain as a shooting pain. Coronavirus screen: Client denies travel out of the [place] in the last 14 days. Ebola Screen: Patient denies travel to an Ebola-affected area in the 21 days before illness onset. Initial Sepsis Screen: Does the patient meet any 2 criteria? No. Patient's initial sepsis screen is negative. Does the patient have a suspected source of infection? No. Patient's initial sepsis screen is negative. Risk Assessment: Do you want to hurt yourself or someone else? Patient reports no desire to harm self or others. Onset of symptoms was December 04, 2024. 14:30 Method Of Arrival: Wheelchair cm10 14:30 Acuity: DULCE 3 cm10 Triage Assessment: 14:35 General: Appears uncomfortable, Behavior is calm, cooperative. Pain: Complains of pain cm10 in low back area Pain radiates to buttocks Pain currently is 10 out of 10 on a pain scale. Pain began suddenly. Neuro: No deficits noted. Level of Consciousness is awake, alert, obeys commands, Oriented to person, place, time, situation, Appropriate for age. Respiratory: No deficits noted. Airway is patent Respiratory effort is even, unlabored, Respiratory pattern is regular, symmetrical. Musculoskeletal: Range of motion: intact in all extremities, Reports pain in low back area. Historical: - Allergies: 14:34 Codeine; cm10 14:34 Lortab; cm10 - PMHx: 14:34 Bipolar disorder; Bipolar disorder; epilepsy; cm10 - PSHx: 14:34 section; Tonsillectomy; cm10 - Immunization history:: Adult Immunizations up to date. - Infectious Disease History:: Denies. - Social history:: Smoking status: Patient reports the use of cigarette tobacco products, smokes one pack cigarettes per day. Patient uses street drugs, marijuana. Screenin:40 [facility] ED Fall Risk Assessment (Adult) History of falling in the last 3 months, vc1 including since admission No falls in past 3 months (0 pts) Confusion or Disorientation No (0 pts) Intoxicated or Sedated No (0 pts) Impaired Gait Yes (1 pt) Mobility Assist Device Used No (0 pt) Altered Elimination No (0 pt) Score/Fall Risk Level 0 - 2 = Low Risk Oriented to surroundings, Maintained a safe environment, Educated pt \T\ family on fall prevention, incl call for assistance when getting out of bed. Abuse screen: Denies threats or abuse. Nutritional screening: No deficits noted. Tuberculosis screening: No symptoms or risk factors identified. Assessment: 18:11 Reassessment: No changes from previously documented assessment. Patient and/or family ll1 updated on plan of care and expected duration. Pain level reassessed. Patient is alert, oriented x 3, equal unlabored respirations, skin warm/dry/pink. Vital Signs: 14:30 BP 122 / 81; Pulse 102; Resp 18; Temp 98.5(TE); Pulse Ox 95% on R/A; Weight 74.84 kg; cm10 Height 5 ft. 6 in. ; Pain 10/10; 14:30 Body Mass Index 26.63 (74.84 kg, 167.64 cm) cm10 14:30 Pain Scale: Adult cm10 ED Course: 14:02 Patient arrived in ED. cj3 14:07 Lewis Carpenter MD is Attending Physician. migue 14:29 Kimberly Slaughter FNP-C is PSYCHIATRICP. kb 14:34 Triage completed. cm10 14:34 Arm band placed on right wrist. Patient placed in waiting room. cm10 15:17 CMP Sent. bc6 15:17 CBC with Diff Sent. bc6 15:17 Initial lab(s) drawn, by az, sent to lab. Inserted saline lock: 20 gauge in right bc6 antecubital area, using aseptic technique. Blood collected. Flushed with 10 mL NS. 16:48 Patient placed in a hallway bed, in view of staff members. ll1 17:06 Genie Olguin, RN is Primary Nurse. ll1 19:21 Primary Nurse role handed off by Genie Olguin, RN rv1 20:41 No provider procedures requiring assistance completed. intact, bleeding controlled, No vc1 redness/swelling at site. Pressure dressing applied. 20:42 Patient has correct armband on for positive identification. Provided Education on: vc1 medication. Administered Medications: 17:06 Drug: NS 0.9% IV 500 ml 500 ml IV at 1 bolus once; to be given as a bolus over 30 ll1 minutes Volume: 500 ml; Route: IV; Rate: 1 bolus; Site: right antecubital; 18:11 Follow up: Response: No adverse reaction; IV Status: Completed infusion; IV Intake: ll1 500ml 17:06 Drug: Ketorolac IVP 15 mg IVP once {Note: pain 10/10 RASS 0.} Route: IVP; Site: right ll1 antecubital; 18:11 Follow up: Response: No adverse reaction; Pain is unchanged, physician notified; RASS: ll1 Alert and Calm (0) 18:11 Drug: fentaNYL (PF) IVP 25 mcg IVP once {Note: pain 9/10 RASS 0.} Route: IVP; Site: ll1 right antecubital; 20:43 Follow up: Response: No adverse reaction vc1 20:00 Drug: Diazepam PO 5 mg PO once Route: PO; vc1 20:43 Follow up: Response: No adverse reaction vc1 20:00 Drug: Decadron - Dexamethasone IVP 10 mg IVP once Route: IVP; Site: right antecubital; vc1 20:44 Follow up: Response: Medication administered at discharge. vc1 20:00 Drug: Lidoderm Topical Patch 5 % (700 mg/patch) 1 patches Topical once; leave on for 12 vc1 hours; cover most painful area; may cut into smaller pieces Route: Topical; Site: affected area; Medication: 20:43 VIS not applicable for this client. vc1 Intake: 18:11 IV: 500ml; Total: 500ml. ll1 Outcome: 19:32 Discharge ordered by MD. burgos 20:42 Discharged to home ambulatory, vc1 20:42 Condition: stable 20:42 Discharge instructions given to patient, Instructed on discharge instructions, follow up and referral plans. medication usage, Demonstrated understanding of instructions, follow-up care, medications, Prescriptions given X 2, 20:45 Patient left the ED. vc1 Signatures: Kimberly Slaughter, CARLOS-C SOLE STAINER-CkLewis Gonzales MD MD cha Lewis, Lynsay, RN RN ll1 Alana Arrington, RN RN vc1 Carina Nova1 Maria Isabel Jacobs 6 Ivet Berg RN RN cm10 Elba Zhao 3
--- NOTE | 2024-12-11 19:33 | EDPHYS ---
Physician Documentation [facility] Name: Madison Moreland Age: 39 yrs Sex: Female : 1985 Arrival Date: 12/11/2024 Time: 13:53 Bed DX1 Private MD: ED Physician Lewis Carpenter HPI: 12/11 14:30 This 39 yrs old Female presents to ER via Unassigned with complaints of Back Pain. kb 14:30 Pt is a 39 year old female who presents for low back pain that started one week ago. kb States she was seen here and diagnosed with sciatica. States the pain was only on the left side at that time, but now it has moved to the right. Denies injury or trauma. 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 Pain has just gotten worse since then. . Historical: - Allergies: 14:34 Codeine; cm10 14:34 Lortab; cm10 - PMHx: 14:34 Bipolar disorder; Bipolar disorder; epilepsy; cm10 - PSHx: 14:34 section; Tonsillectomy; cm10 - Immunization history:: Adult Immunizations up to date. - Infectious Disease History:: Denies. - Social history:: Smoking status: Patient reports the use of cigarette tobacco products, smokes one pack cigarettes per day. Patient uses street drugs, marijuana. ROS: 14:33 Constitutional: As per HPI kb Exam: 14:33 Constitutional: This is a well developed, well nourished patient who is awake, alert, kb and in no acute distress. Head/Face: Normocephalic, atraumatic. ENT: Moist Mucous membranes Cardiovascular: Regular rate Respiratory: Respirations even and unlabored. No increased work of breathing. Talking in full sentences Abdomen/GI: Soft, non-tender. No distention Skin: Warm, dry with normal turgor. Normal color. MS/ Extremity: Pulses equal, no cyanosis. Neurovascular intact. Full, normal range of motion. Neuro: Awake and alert, GCS 15, oriented to person, place, time, and situation. 14:33 Back: pain, that is moderate, of the low back area, Vital Signs: 14:30 BP 122 / 81; Pulse 102; Resp 18; Temp 98.5(TE); Pulse Ox 95% on R/A; Weight 74.84 kg; cm10 Height 5 ft. 6 in. ; Pain 10/10; 14:30 Body Mass Index 26.63 (74.84 kg, 167.64 cm) cm10 14:30 Pain Scale: Adult cm10 MDM: 14:07 Medical Screening Exam initiated [facility] 12/12 00:21 Differential diagnosis: sciatica, uti, strain. Data reviewed: vital signs, nurses kb notes. Test considered but Not performed: CT: ct considered but was done during recent visit and negative for acute findings. Counseling: I had a detailed discussion with the patient and/or guardian regarding the historical points, exam findings, and any diagnostic results supporting the discharge/admit diagnosis, lab results, the need for outpatient follow up, a family practitioner, to return to the emergency department if symptoms worsen or persist or if there are any questions or concerns that arise at home. ED course: Pt ambulatory. Educated on pain management and need for follow up if symptoms persist. . 12/11 14:08 Order name: CBC with Diff; Complete Time: 15:30 [facility] 12/11 14:08 Order name: CMP; Complete Time: 15:58 [facility] 12/11 14:08 Order name: Urinalysis w/ reflexes; Complete Time: 19:29 [facility] 12/11 14:08 Order name: PREGU; Complete Time: 19:29 [facility] 12/11 14:33 Order name: IV Start; Complete Time: 15:17 kb Administered Medications: 12/11 17:06 Drug: NS 0.9% IV 500 ml 500 ml IV at 1 bolus once; to be given as a bolus over 30 ll1 minutes Volume: 500 ml; Route: IV; Rate: 1 bolus; Site: right antecubital; 18:11 Follow up: Response: No adverse reaction; IV Status: Completed infusion; IV Intake: ll1 500ml 17:06 Drug: Ketorolac IVP 15 mg IVP once {Note: pain 10/10 RASS 0.} Route: IVP; Site: right ll1 antecubital; 18:11 Follow up: Response: No adverse reaction; Pain is unchanged, physician notified; RASS: ll1 Alert and Calm (0) 18:11 Drug: fentaNYL (PF) IVP 25 mcg IVP once {Note: pain 9/10 RASS 0.} Route: IVP; Site: ll1 right antecubital; 20:43 Follow up: Response: No adverse reaction vc1 20:00 Drug: Diazepam PO 5 mg PO once Route: PO; vc1 20:43 Follow up: Response: No adverse reaction vc1 20:00 Drug: Decadron - Dexamethasone IVP 10 mg IVP once Route: IVP; Site: right antecubital; vc1 20:44 Follow up: Response: Medication administered at discharge. vc1 20:00 Drug: Lidoderm Topical Patch 5 % (700 mg/patch) 1 patches Topical once; leave on for 12 vc1 hours; cover most painful area; may cut into smaller pieces Route: Topical; Site: affected area; Disposition Summary: 12/11/24 19:32 Discharge Ordered Notes: Location: Home kb Condition: Stable kb Diagnosis - Low back pain kb Followup: kb - With: Emergency Department - When: As needed - Reason: Worsening of condition Followup: kb - With: Private Physician - When: 2 - 3 days - Reason: Recheck today's complaints, Continuance of care, Re-evaluation by your physician Discharge Instructions: - Discharge Summary Sheet kb - Acute Back Pain, Adult kb Forms: - Medication Reconciliation Form kb - Antibiotic Education kb - Prescription Opioid Use kb - Patient Portal Instructions kb - Leadership Thank You Letter kb - Work release form vc1 Prescriptions: - Prednisone 20 mg Oral Tablet - take 1 tablet ORAL route once daily for 5 days; 5 tablet; Refills: 0, Product kb Selection Permitted - Diclofenac Sodium 75 mg Oral tablet, delayed release (enteric coated) - take 1 tablet ORAL route 2 times per day As needed; 30 tablet; Refills: 0, kb Product Selection Permitted Signatures: Dispatcher [employer] EDKimberly Avalos, CARLOS-C DELIVERY TRUCK DRIVER-Lewis Orozco MD MD cha Lewis, Lynsay, RN RN ll1 Alana Arrington RN RN vc1 Ivet Berg, RN RN cm10 Corrections: (The following items were deleted from the chart) 14:33 14:30 Pt is a 39 year old female who presents for low back pain that started one week kb ago. States she was seen here and diagnosed with sciatica. States the pain was only on the left side at that time, but now it has moved to the right. . kb 14:34 14:30 Pt is a 39 year old female who presents for low back pain that started one week kb ago. States she was seen here and diagnosed with sciatica. States the pain was only on the left side at that time, but now it has moved to the right. Denies injury or trauma. . kb
[2024-12-11] MEDS ORDERED: dexAMETHasone 10 MG/ML VIAL ONE (19:51)
[2024-12-11] MEDS ORDERED: LIDOCAINE 4% PATCH ONE (19:51)
[2024-12-11] MEDS ORDERED: DIAZEPAM 5 MG TABLET ONE (19:51)
[2024-12-11 21:04] VITALS: BP 122/81; TEMP 98.5; O2SAT 95
== END 2024-12-11 20:45 | disposition home or self-care (01) ==
LOC: ER 13:53
DX: M54.50 Low back pain, unspecified (principal); F17.210 Nicotine dependence, cigarettes, uncomplicated
CPT/HCPCS: 85025; 81001; 36415; 81025; 80053; J2003; J3010; J1100; J7040